=== PATIENT | female | born 1985 | race African-American/Black ===

== ENCOUNTER 2020-08-05 09:20 | Emergency (ER) | payer SELFPAY ==
[2020-08-05 09:47] LABS: #Basophils 0.1 thou/uL (0.0-0.2); #Eosinphils 0.2 thou/uL (0.0-0.7); #Lymphocytes 1.7 thou/uL (1.20-3.40); #Monocytes 0.3 thou/uL (0.11-0.59); #Neutrophils 2.3 thou/uL (1.40-6.50); %Basophils 1.3 % (0.0-1.0); %Eosinophils 4.3 % (0.0-10.0); %Lymphocytes 37.2 % (21.0-51.0); %Monocytes 7.2 % (0.0-10.0); Hemoglobin 12.2 g/dL (12.0-16.0); Mean Corpuscular HGB CONC 34.7 g/dL (32.0-36.0); Mean Corpuscular Hemoglobin 32.2 pg (27.0-31.0); Mean Corpuscular Volume 92.8 fL (78.0-98.0); Mean Platelet Volume 8.4 fL (7.4-10.4); Platelet Count 252 thou/uL (130-400); RBC Distribution Width 13.4 % (11.5-14.5); Red Blood Cell (RBC) Count 3.79 mill/uL (4.20-5.40); White Blood Cell (WBC) Count 4.5 thou/uL (4.8-10.8)
[2020-08-05 09:54] LABS: INR-International Normal Ratio 1.1; PTT 31.1 sec (22.9-36.1); Prothrombin Time 14.4 sec (12.0-14.7)
[2020-08-05 09:58] LABS: BHCG - Serum Negative (NEGATIVE); Pregs Control Background? CLEAR/WHITE (CLR/WHITE); Pregs Control Bar Appear? YES (CONTROL BAR)
[2020-08-05 10:10] LABS: ALT (SGPT) 66 U/L (8-55); AST (SGOT) 151 U/L (5-34); Albumin 3.8 g/dL (3.5-5.0); Alkaline Phosphatase 109 U/L (40-110); Anion Gap 15 mmol/L (10-20); BUN (Urea Nitrogen) 7 mg/dL (7.0-18.7); Bilirubin, Total 1.1 mg/dL (0.2-1.2); Calc. Creatinine Clearance 0 mL/min (70-130); Calcium 8.3 mg/dL (7.8-10.44); Carbon Dioxide 22 mmol/L (22-29); Chloride 105 mmol/L (98-107); Globulin 3.6 g/dL (2.4-3.5); Glucose 145 mg/dL (70-105); Lipase 42 U/L (8-78); Potassium 3.4 mmol/L (3.5-5.1); Protein, Total 7.4 g/dL (6.0-8.3); Sodium 139 mmol/L (136-145)
--- NOTE | 2020-08-05 15:16 | ULT ---
Right upper quadrant ultrasound: 08/05/2020 COMPARISON: None HISTORY: Right upper quadrant pain TECHNIQUE: Multiplanar lewis scale sonographic imaging of the right upper quadrant provided. FINDINGS: The pancreas is obscured by bowel gas. The hepatic parenchyma is heterogeneous and echogeni c suggesting hepatocellular disease, such as steatosis. This limits assessment for focal liver lesion and intrahepatic biliary dilatation. The common bile duct measures 2 mm, within normal limits. No gallbladder wall thickening or pericholecystic fluid. No gallstones. Right kidney measures 11.3 cm in craniocaudal dimension and demonstrates no stone, hydronephrosis, or mass. IMPRESSION: No sonographic evidence of cholelithiasis, cholecystitis, or biliary dilatation.
[2020-08-05] MEDS ORDERED: Morphine 4 MG/ML VIAL ONE (17:52)
[2020-08-05] MEDS ORDERED: Ondansetron PF 4 MG/2 ML Vial ONE (17:52)
== END 2020-08-05 19:40 | disposition home or self-care (01) ==
LOC: ERS 09:20
DX: N93.8 Other specified abnormal uterine and vaginal bleeding (principal); F17.210 Nicotine dependence, cigarettes, uncomplicated
CPT/HCPCS: 36415; 76705; 80053; 82274; 83690; 84703; 85025; 85610; 85730; 96374; 96375; J2270; J2405

== ENCOUNTER 2020-10-16 08:42 | Emergency (ER) | payer SELFPAY | END 2020-10-16 10:42 | disposition home or self-care (01) | LOC: ERS 08:42 | DX: J36 Peritonsillar abscess (principal); F17.210 Nicotine dependence, cigarettes, uncomplicated | CPT/HCPCS: 87430; 99283 ==

== ENCOUNTER 2020-12-28 13:59 | Inpatient (IN) | payer SELFPAY ==
[~2020-12-28 13:59] MED LIST: Iopamidol 370 76% 100 ML VIAL ONE
[2020-12-28 15:32] LABS: #Basophils 0.1 thou/uL (0.0-0.2); #Eosinphils 0.2 thou/uL (0.0-0.7); #Lymphocytes 2.9 thou/uL (1.20-3.40); #Monocytes 0.7 thou/uL (0.11-0.59); %Basophils 1.3 % (0.0-1.0); %Lymphocytes 42.5 % (21.0-51.0); %Monocytes 9.7 % (0.0-10.0); %Neutrophils 43.4 % (42.0-75.0); Hemoglobin 12.3 g/dL (12.0-16.0); Mean Corpuscular HGB CONC 34.8 g/dL (32.0-36.0); Mean Corpuscular Hemoglobin 31.3 pg (27.0-31.0); Mean Corpuscular Volume 89.9 fL (78.0-98.0); Mean Platelet Volume 7.9 fL (7.4-10.4); Platelet Count 312 thou/uL (130-400); Red Blood Cell (RBC) Count 3.93 mill/uL (4.20-5.40); White Blood Cell (WBC) Count 6.9 thou/uL (4.8-10.8)
[2020-12-28 15:59] LABS: ALT (SGPT) 13 U/L (8-55); AST (SGOT) 33 U/L (5-34); Albumin 4.2 g/dL (3.5-5.0); Alkaline Phosphatase 59 U/L (40-110); BUN (Urea Nitrogen) 8 mg/dL (7.0-18.7); Bilirubin, Total 0.2 mg/dL (0.2-1.2); Calc. Creatinine Clearance 0 mL/min (70-130); Calcium 9.1 mg/dL (7.8-10.44); Globulin 3.4 g/dL (2.4-3.5); Glucose 112 mg/dL (70-105); Protein, Total 7.6 g/dL (6.0-8.3)
[2020-12-28 16:10] LABS: Bacteria/HPF None Seen HPF (None Seen); Bilirubin Negative (Negative); Blood, Urine 3+ (Negative); Clarity Clear (Clear); Glucose, Urine (Dipstick) Normal (Negative); Ketone, Urine Negative (Negative); Leukocyte Negative Leu/uL (Negative); Nitrite Negative (Negative); Protein, Urine (Dipstick) Negative (Neg-Trace); Specific Gravity, Urine 1.019 (1.002-1.036); Squamous Epithelial 0-3 HPF (0-3); Urobilinogen Normal mg/dL (Less than 2); WBC/HPF 0-3 HPF (0-3); pH, Urine 5.5 (5.0-9.0)
[2020-12-28 16:16] LABS: Chloride 104 mmol/L (98-107); Potassium 3.8 mmol/L (3.5-5.1); Sodium 136 mmol/L (136-145)
[2020-12-28 16:39] LABS: Amphetamine Not Detected (NotDetected); Benzodiazepine Screen Not Detected (NotDetected); Cocaine Metabolite Screen Not Detected (NotDetected); Medtox Reader # READER 4; Methamphetamine Not Detected (NotDetected); Opiate Screen Not Detected (NotDetected); Phencyclidine (PCP) Not Detected (NotDetected); THC/Cannabinoid Screen Not Detected (NotDetected); Tricyclic Screen Detected (NotDetected)
[2020-12-28 16:40] LABS: Barbiturates Screen Not Detected (NotDetected); Medtox Control Line Valid? VALID (VALID); Methadone Not Detected (NotDetected); Oxycodone Screen Not Detected (NotDetected)
[2020-12-28 16:57] LABS: Magnesium 1.9 mg/dL (1.6-2.6)
[2020-12-28] MEDS ORDERED: Metoclopramide HCl 10 MG/2 ML VIAL ONE (17:10)
[2020-12-28] MEDS ORDERED: Ketorolac Tromethamine 30 MG/ML VIAL ONE (17:10)
[2020-12-28] MEDS ORDERED: diphenhydrAMINE 50 MG/ML VIAL ONE (17:10)
[2020-12-28 17:17] LABS: Thyroid Stimulating Hormone 1.4684 uIU/mL (0.35-4.94)
[2020-12-28 17:20] LABS: Carbon Dioxide 14 mmol/L (22-29)
[2020-12-28 17:21] LABS: Anion Gap 23 mmol/L (10-20)
[2020-12-28 17:21] LABS: BHCG - Serum Negative (NEGATIVE); Pregs Control Background? CLEAR/WHITE (CLR/WHITE); Pregs Control Bar Appear? YES (CONTROL BAR)
[2020-12-28 17:51] LABS: MONO NEGATIVE CONTROL ZONE White (Negative) (White); MONO POSITIVE CONTROL Pink Line (Positive) (PINK/RED); Mononucleosis NEGATIVE (NEGATIVE)
[2020-12-28 17:54] LABS: Pregu Control Background? CLEAR/WHITE (CLR/WHITE); Pregu Control Bar Appear? YES (CONTROL BAR); Specific Gravity 1.011 (1.002-1.036)
[2020-12-28 17:55] LABS: Pregnancy Test - Urine (BHCG) Negative (Negative)
[2020-12-28 18:53] LABS: SARS-CoV-2 NAA Rapid Test Not Detected (NotDetected)
[2020-12-28] MEDS ORDERED: Morphine 4 MG/ML VIAL ONE (18:56)
[2020-12-28 19:55] LABS: Lactic Acid 2.7 mmol/L (0.5-2.2)
[2020-12-28 19:56] LABS: Actual Bicarbonate (HCO3v) 19 mEq/L (22-28); Analyzer IN Cardio ER; Base Excess -3.5 mEq/L (-2.0 to +3.0); Calcium, Ionized (venous) 0.95 mmol/L (1.16-1.32); Chloride (VBG) 105 mmol/L (98-106); Potassium (VBG) 4.06 mmol/L (3.70-5.30); Sodium 132.2 mmol/L (133-146); pH (venous) 7.46 (7.32-7.43)
[2020-12-28] MEDS ORDERED: cefTRIAXone\\ROCEPHIN 1 GM VIAL ONE (20:10)
[2020-12-28] MEDS ORDERED: Vancomycin 1 GM/200 ML BAG ONE (20:54)
[2020-12-28] MEDS ORDERED: Acetaminophen 325 MG TAB PO PRN (21:43)
[2020-12-28] MEDS ORDERED: Ondansetron PF 4 MG/2 ML Vial IVP PRN (21:43)
[2020-12-28 23:01] VITALS: BMI 29.0
[2020-12-28] MEDS: Sodium Chloride 0.9% 1,000 ML IV SCH (23:24)
[2020-12-28] MEDS: HYDROcodone/Acetaminophen 7.5/325 mg Tablet PO PRN (23:25)
[2020-12-29] MEDS: Sodium Chloride 0.9% 1,000 ML IV SCH ×2 (05:52→20:35)
[2020-12-29] MEDS: HYDROcodone/Acetaminophen 7.5/325 mg Tablet PO PRN ×4 (05:56→20:34)
[2020-12-29] MEDS ORDERED: CEFEPIME HCL IN DEXTROSE 5 % 1 GM in Premix Bag 1 BAG IVPB SCH (06:00)
[2020-12-29] MEDS ORDERED: Cefepime 1 GM in Sodium Chloride 0.9% 100 ML IVPB SCH (06:00)
[2020-12-29 06:07] LABS: #Basophils 0.1 thou/uL (0.0-0.2); #Eosinphils 0.2 thou/uL (0.0-0.7); #Lymphocytes 2.4 thou/uL (1.20-3.40); #Monocytes 0.5 thou/uL (0.11-0.59); %Basophils 1.4 % (0.0-1.0); %Lymphocytes 46.8 % (21.0-51.0); %Monocytes 9.2 % (0.0-10.0); %Neutrophils 39.7 % (42.0-75.0); Hemoglobin 9.9 g/dL (12.0-16.0); Mean Corpuscular HGB CONC 34.7 g/dL (32.0-36.0); Mean Corpuscular Hemoglobin 31.3 pg (27.0-31.0); Mean Corpuscular Volume 90.4 fL (78.0-98.0); Mean Platelet Volume 7.9 fL (7.4-10.4); Platelet Count 236 thou/uL (130-400); RBC Distribution Width 14.5 % (11.5-14.5); Red Blood Cell (RBC) Count 3.17 mill/uL (4.20-5.40); White Blood Cell (WBC) Count 5.1 thou/uL (4.8-10.8)
[2020-12-29 06:22] LABS: Lactic Acid 2.3 mmol/L (0.5-2.2)
[2020-12-29 06:26] LABS: Anion Gap 14 mmol/L (10-20); BUN (Urea Nitrogen) 7 mg/dL (7.0-18.7); Calc. Creatinine Clearance 125 mL/min (70-130); Carbon Dioxide 18 mmol/L (22-29); Chloride 110 mmol/L (98-107); Glucose 108 mg/dL (70-105); Potassium 3.5 mmol/L (3.5-5.1); Sodium 138 mmol/L (136-145)
[2020-12-29] MEDS ORDERED: Vancomycin 1 GM in Premix Bag 1 BAG IVPB SCH (09:00)
[2020-12-29] MEDS ORDERED: Acetaminophen 500 MG TAB PO PRN (12:07)
[2020-12-29] MEDS ORDERED: Ibuprofen 200 MG TAB PO PRN (12:14)
[2020-12-30] MEDS: HYDROcodone/Acetaminophen 7.5/325 mg Tablet PO PRN ×2 (04:27→08:24)
[2020-12-30 06:36] LABS: #Basophils 0.1 thou/uL (0.0-0.2); #Eosinphils 0.2 thou/uL (0.0-0.7); #Lymphocytes 2.3 thou/uL (1.20-3.40); #Monocytes 0.4 thou/uL (0.11-0.59); #Neutrophils 2.5 thou/uL (1.40-6.50); %Eosinophils 3.4 % (0.0-10.0); %Lymphocytes 41.8 % (21.0-51.0); %Neutrophils 45.8 % (42.0-75.0); Mean Corpuscular HGB CONC 34.9 g/dL (32.0-36.0); Mean Corpuscular Hemoglobin 31.6 pg (27.0-31.0); Mean Corpuscular Volume 90.4 fL (78.0-98.0); Mean Platelet Volume 7.8 fL (7.4-10.4); Platelet Count 229 thou/uL (130-400); RBC Distribution Width 14.2 % (11.5-14.5); Red Blood Cell (RBC) Count 3.16 mill/uL (4.20-5.40); White Blood Cell (WBC) Count 5.5 thou/uL (4.8-10.8)
[2020-12-30 07:03] LABS: Anion Gap 13 mmol/L (10-20); BUN (Urea Nitrogen) 5 mg/dL (7.0-18.7); Calc. Creatinine Clearance 130 mL/min (70-130); Calcium 8.2 mg/dL (7.8-10.44); Carbon Dioxide 21 mmol/L (22-29); Chloride 107 mmol/L (98-107); Glucose 110 mg/dL (70-105); Potassium 3.9 mmol/L (3.5-5.1); Sodium 137 mmol/L (136-145)
[2020-12-30 08:30] VITALS: BP 126/88
[2020-12-30] MEDS ORDERED: Enoxaparin Sodium 40 MG/0.4 ML SYRINGE SC SCH (09:00)
[2020-12-30] MEDS ORDERED: Citalopram 10 MG TAB PO SCH (09:00)
[2020-12-30] MEDS: Sodium Chloride 0.9% 1,000 ML IV SCH (10:00)
[2020-12-30] MEDS ORDERED: Ketorolac Tromethamine 30 MG/ML VIAL IVP SCH (11:30)
[2020-12-30 13:31] VITALS: TEMP 98.2
== END 2020-12-30 14:30 | disposition home or self-care (01) | DRG 103 ==
LOC: ERS 13:59 → T4-A 20:49 → OBSVTOIN 12-30 10:09
PROVIDERS: ADMIT Internal Medicine; ATTEND Internal Medicine
DX: R51.9 Headache, unspecified (principal); E87.2 Acidosis; Z20.822 Contact with and (suspected) exposure to COVID-19; F31.9 Bipolar disorder, unspecified; F20.9 Schizophrenia, unspecified; F17.210 Nicotine dependence, cigarettes, uncomplicated; F43.10 Post-traumatic stress disorder, unspecified; N28.1 Cyst of kidney, acquired; E86.0 Dehydration; Z79.899 Other long term (current) drug therapy
CPT/HCPCS: 0240U; 36415; 70450; 71045; 74177; 80048; 80053; 80306; 81003; 81015; 81025; 82805; 83605; 83630; 83690; 83735; 84443; 84484; 84703; 85025; 85379; 86308; 87040; 87045; 87046; 87086; 87177; 87427; 87449; 93005; 96365; 96366; 96367; 96372; 96375; 96376; G0378; J0692; J0696; J1200; J1650; J1885; J2270; J2765; J3370; Q9967

== ENCOUNTER 2021-02-10 14:57 | Inpatient (IN) | payer SELFPAY ==
[~2021-02-10 14:57] MED LIST changes: -Iopamidol 370 76% 100 ML VIAL ONE; +Iopamidol-370 76% 500 ML 1 ML ONE
[2021-02-10] MEDS ORDERED: Haloperidol Lactate 5 MG/ML VIAL ONE (15:19)
[2021-02-10] MEDS ORDERED: Lorazepam 2 MG/ML VIAL ONE ×2 (15:33→20:46)
[2021-02-10] MEDS ORDERED: Morphine 4 MG/ML VIAL ONE (15:33)
[2021-02-10] MEDS ORDERED: Ondansetron PF 4 MG/2 ML Vial ONE (16:18)
[2021-02-10 16:38] LABS: #Basophils 0.1 thou/uL (0.0-0.2); #Eosinphils 0.1 thou/uL (0.0-0.7); #Lymphocytes 3.3 thou/uL (1.20-3.40); #Monocytes 0.4 thou/uL (0.11-0.59); #Neutrophils 6.5 thou/uL (1.40-6.50); %Basophils 0.7 % (0.0-1.0); %Eosinophils 0.9 % (0.0-10.0); %Lymphocytes 32.3 % (21.0-51.0); %Monocytes 3.7 % (0.0-10.0); %Neutrophils 62.5 % (42.0-75.0); Hemoglobin 12.3 g/dL (12.0-16.0); Mean Corpuscular HGB CONC 35.9 g/dL (32.0-36.0); Mean Corpuscular Hemoglobin 31.6 pg (27.0-31.0); Mean Corpuscular Volume 88.1 fL (78.0-98.0); Mean Platelet Volume 8.4 fL (7.4-10.4); Platelet Count 263 thou/uL (130-400); RBC Distribution Width 15.5 % (11.5-14.5); Red Blood Cell (RBC) Count 3.88 mill/uL (4.20-5.40); White Blood Cell (WBC) Count 10.3 thou/uL (4.8-10.8)
[2021-02-10 16:58] LABS: Bilirubin Negative (Negative); Blood, Urine Negative (Negative); Clarity Turbid (Clear); Glucose, Urine (Dipstick) Normal (Negative); Ketone, Urine Negative (Negative); Leukocyte Negative Leu/uL (Negative); Nitrite Negative (Negative); Protein, Urine (Dipstick) 20 mg/dL (Neg-Trace); Specific Gravity, Urine 1.013 (1.002-1.036); Urobilinogen Normal mg/dL (Less than 2); pH, Urine 5.5 (5.0-9.0)
[2021-02-10 17:12] LABS: ALT (SGPT) 27 U/L (8-55); AST (SGOT) 66 U/L (5-34); Alkaline Phosphatase 75 U/L (40-110); Anion Gap 17 mmol/L (10-20); BUN (Urea Nitrogen) Less than 4 mg/dL (7.0-18.7); Bilirubin, Total 0.8 mg/dL (0.2-1.2); Calc. Creatinine Clearance 0 mL/min (70-130); Carbon Dioxide 20 mmol/L (22-29); Chloride 103 mmol/L (98-107); Globulin 3.7 g/dL (2.4-3.5); Glucose 145 mg/dL (70-105); Lipase 828 U/L (8-78); Potassium 3.5 mmol/L (3.5-5.1); Protein, Total 7.7 g/dL (6.0-8.3); Sodium 136 mmol/L (136-145)
[2021-02-10 17:18] LABS: BHCG - Serum Negative (NEGATIVE); Pregs Control Background? CLEAR/WHITE (CLR/WHITE); Pregs Control Bar Appear? YES (CONTROL BAR)
[2021-02-10 19:04] LABS: Magnesium 1.4 mg/dL (1.6-2.6); Phosphorus 2.1 mg/dL (2.3-4.7)
[2021-02-10 19:34] LABS: Lactic Acid 3.5 mmol/L (0.5-2.2)
[2021-02-10] MEDS ORDERED: Magnesium Sulfate 4 GM in Sodium Chloride 0.9% 250 ML 250 ML IVPB SCH (20:30)
[2021-02-10] MEDS ORDERED: Lorazepam 2 MG/ML VIAL SLOW IVP PRN (20:39)
[2021-02-10] MEDS ORDERED: Haloperidol Lactate 5 MG/ML VIAL SLOW IVP PRN (20:39)
[2021-02-10] MEDS ORDERED: Ondansetron ODT 4 MG TAB SL PRN (20:45)
[2021-02-10] MEDS ORDERED: Sodium Chloride 0.9% 1,000 ML IV SCH (20:45)
[2021-02-10] MEDS ORDERED: Ondansetron PF 4 MG/2 ML Vial IVP PRN (20:45)
[2021-02-10] MEDS ORDERED: Acetaminophen 325 MG TAB PO PRN (20:45)
[2021-02-10] MEDS ORDERED: Morphine 2 MG/ML VIAL ONE (20:46)
[2021-02-10] MEDS ORDERED: Ziprasidone 20 MG VIAL IM SCH (22:05)
[2021-02-10] MEDS ORDERED: Morphine 4 MG/ML VIAL IV SCH (22:05)
[2021-02-10] MEDS: Sodium Chloride 0.9% 1,000 ML IV SCH (22:10)
[2021-02-10] MEDS ORDERED: Sterile Water 10 ML VIAL FS PRN ×2 (22:15→22:30)
[2021-02-10 22:19] VITALS: BMI 32.3
[2021-02-10] MEDS ORDERED: Morphine 4 MG/ML VIAL SLOW IVP SCH (22:30)
[2021-02-10] MEDS ORDERED: OLANZapine 10 MG VIAL IM SCH (22:30)
[2021-02-11] MEDS: Morphine 4 MG/ML VIAL SLOW IVP PRN ×2 (01:03→03:59)
[2021-02-11] MEDS: Sodium Chloride 0.9% 1,000 ML IV SCH ×6 (01:05→19:58)
[2021-02-11] MEDS ORDERED: Ondansetron ODT 4 MG TAB PO PRN (02:17)
[2021-02-11 07:42] LABS: #Lymphocytes 1.4 thou/uL (1.20-3.40); #Monocytes 0.4 thou/uL (0.11-0.59); #Neutrophils 9.8 thou/uL (1.40-6.50); %Basophils 0.3 % (0.0-1.0); %Eosinophils 0.2 % (0.0-10.0); %Lymphocytes 11.8 % (21.0-51.0); %Monocytes 3.2 % (0.0-10.0); %Neutrophils 84.5 % (42.0-75.0); Hemoglobin 12.5 g/dL (12.0-16.0); Mean Corpuscular Hemoglobin 31.4 pg (27.0-31.0); Mean Corpuscular Volume 89.6 fL (78.0-98.0); Mean Platelet Volume 7.9 fL (7.4-10.4); Platelet Count 195 thou/uL (130-400); RBC Distribution Width 15.8 % (11.5-14.5); Red Blood Cell (RBC) Count 3.99 mill/uL (4.20-5.40); White Blood Cell (WBC) Count 11.6 thou/uL (4.8-10.8)
[2021-02-11 08:01] LABS: Anion Gap 15 mmol/L (10-20); BUN (Urea Nitrogen) Less than 4 mg/dL (7.0-18.7); Calc. Creatinine Clearance 149 mL/min (70-130); Calcium 6.9 mg/dL (7.8-10.44); Carbon Dioxide 17 mmol/L (22-29); Cardiac Risk 3.6 (Less than 4.5); Chloride 98 mmol/L (98-107); Cholesterol 177 mg/dl (< 200 Desired); Glucose 189 mg/dL (70-105); HDL Cholesterol 49 mg/dL (>60 Neg Risk); LDL Cholesterol, Calculated 100 mg/dL; Lipase 953 U/L (8-78); Magnesium 1.8 mg/dL (1.6-2.6); Potassium 4.3 mmol/L (3.5-5.1); Sodium 126 mmol/L (136-145); Triglycerides 141 mg/dL (Less than 150)
[2021-02-11 08:04] LABS: Lactic Acid 6.3 mmol/L (0.5-2.2)
[2021-02-11] MEDS ORDERED: Piperacillin/Tazobactam 3.375 GM in Sodium Chloride 0.9% 100 ML IVPB SCH ×2 (08:15→09:00)
[2021-02-11 08:27] LABS: Acetaminophen Less than 6.0 mcg/mL (10.0-30.0); Alcohol Less than 10 mg/dL (Less than 10); Salicylate Less than 8.0 mg/dL (15.0-30.0)
[2021-02-11] MEDS: Morphine 2 MG/ML VIAL SLOW IVP PRN ×4 (08:32→19:59)
[2021-02-11] MEDS: Famotidine 20 MG TAB PO SCH ×2 (08:34→19:57)
[2021-02-11] MEDS: Escitalopram Oxalate 10 mg Tablet PO SCH (08:34)
[2021-02-11] MEDS ORDERED: Famotidine/PF 20 mg/2ml Vial SLOW IVP SCH (09:00)
[2021-02-11 11:21] LABS: Amphetamine Not Detected (NotDetected); Barbiturates Screen Not Detected (NotDetected); Benzodiazepine Screen Detected (NotDetected); Cocaine Metabolite Screen Not Detected (NotDetected); Methadone Not Detected (NotDetected); Methamphetamine Not Detected (NotDetected); Opiate Screen Detected (NotDetected); Oxycodone Screen Not Detected (NotDetected); Phencyclidine (PCP) Not Detected (NotDetected); THC/Cannabinoid Screen Not Detected (NotDetected); Tricyclic Screen Detected (NotDetected)
[2021-02-11] MEDS: Acetaminophen 325 MG TAB PO PRN ×2 (13:15→21:37)
[2021-02-11] MEDS: Ondansetron PF 4 MG/2 ML Vial IVP PRN (13:15)
[2021-02-11 14:57] LABS: SARS-CoV-2 PCR by NAA Not Detected (NotDetected)
[2021-02-11] MEDS: Piperacillin/Tazobactam 3.375 GM in Sodium Chloride 0.9% 100 ML IVPB SCH (16:37)
[2021-02-11] MEDS: Labetalol 100 MG TAB PO SCH (19:57)
[2021-02-12] MEDS: Piperacillin/Tazobactam 3.375 GM in Sodium Chloride 0.9% 100 ML IVPB SCH ×3 (00:01→16:32)
[2021-02-12] MEDS: Sodium Chloride 0.9% 1,000 ML IV SCH ×3 (00:01→16:43)
[2021-02-12] MEDS: Morphine 2 MG/ML VIAL SLOW IVP PRN ×4 (00:02→20:32)
[2021-02-12] MEDS: Acetaminophen 325 MG TAB PO PRN (02:37)
[2021-02-12] MEDS ORDERED: Ketorolac Tromethamine 30 MG/ML VIAL IVP SCH (03:30)
[2021-02-12 07:03] LABS: #Eosinphils 0.1 thou/uL (0.0-0.7); #Lymphocytes 1.3 thou/uL (1.20-3.40); #Monocytes 0.9 thou/uL (0.11-0.59); %Basophils 0.2 % (0.0-1.0); %Eosinophils 0.4 % (0.0-10.0); %Lymphocytes 9.2 % (21.0-51.0); %Monocytes 6.1 % (0.0-10.0); %Neutrophils 84.1 % (42.0-75.0); Hemoglobin 11.4 g/dL (12.0-16.0); Mean Corpuscular HGB CONC 34.4 g/dL (32.0-36.0); Mean Corpuscular Volume 90.1 fL (78.0-98.0); Mean Platelet Volume 8.6 fL (7.4-10.4); Platelet Count 197 thou/uL (130-400); RBC Distribution Width 15.7 % (11.5-14.5); Red Blood Cell (RBC) Count 3.69 mill/uL (4.20-5.40); White Blood Cell (WBC) Count 14.3 thou/uL (4.8-10.8)
[2021-02-12 07:17] LABS: ALT (SGPT) 11 U/L (8-55); AST (SGOT) 24 U/L (5-34); Albumin 2.9 g/dL (3.5-5.0); Alkaline Phosphatase 57 U/L (40-110); Anion Gap 15 mmol/L (10-20); BUN (Urea Nitrogen) Less than 4 mg/dL (7.0-18.7); Bilirubin, Total 0.6 mg/dL (0.2-1.2); Calc. Creatinine Clearance 147 mL/min (70-130); Calcium 7.1 mg/dL (7.8-10.44); Carbon Dioxide 18 mmol/L (22-29); Chloride 101 mmol/L (98-107); Globulin 2.9 g/dL (2.4-3.5); Glucose 161 mg/dL (70-105); Potassium 3.8 mmol/L (3.5-5.1); Protein, Total 5.8 g/dL (6.0-8.3); Sodium 130 mmol/L (136-145)
[2021-02-12] MEDS: Escitalopram Oxalate 10 mg Tablet PO SCH (08:48)
[2021-02-12] MEDS: Labetalol 100 MG TAB PO SCH ×2 (08:48→20:31)
[2021-02-12] MEDS: Ketorolac Tromethamine 30 MG/ML VIAL IVP PRN ×2 (16:32→22:43)
[2021-02-12] MEDS: risperiDONE 1 MG TAB PO SCH (20:32)
[2021-02-13] MEDS: Morphine 2 MG/ML VIAL SLOW IVP PRN ×4 (00:37→18:00)
[2021-02-13] MEDS: Sodium Chloride 0.9% 1,000 ML IV SCH ×4 (00:41→21:05)
[2021-02-13] MEDS: Piperacillin/Tazobactam 3.375 GM in Sodium Chloride 0.9% 100 ML IVPB SCH ×3 (00:46→16:54)
[2021-02-13] MEDS: Ketorolac Tromethamine 30 MG/ML VIAL IVP PRN ×4 (03:59→21:06)
[2021-02-13] MEDS: Escitalopram Oxalate 10 mg Tablet PO SCH (09:03)
[2021-02-13] MEDS: Labetalol 100 MG TAB PO SCH ×2 (09:07→21:04)
[2021-02-13 09:19] LABS: #Eosinphils 0.1 thou/uL (0.0-0.7); #Lymphocytes 1.8 thou/uL (1.20-3.40); #Monocytes 1.3 thou/uL (0.11-0.59); #Neutrophils 9.1 thou/uL (1.40-6.50); %Basophils 0.2 % (0.0-1.0); %Eosinophils 0.8 % (0.0-10.0); %Lymphocytes 14.5 % (21.0-51.0); %Monocytes 10.4 % (0.0-10.0); %Neutrophils 74.1 % (42.0-75.0); Hemoglobin 9.8 g/dL (12.0-16.0); Mean Corpuscular HGB CONC 33.7 g/dL (32.0-36.0); Mean Corpuscular Hemoglobin 30.2 pg (27.0-31.0); Mean Corpuscular Volume 89.7 fL (78.0-98.0); Mean Platelet Volume 7.8 fL (7.4-10.4); Platelet Count 189 thou/uL (130-400); RBC Distribution Width 16.1 % (11.5-14.5); Red Blood Cell (RBC) Count 3.24 mill/uL (4.20-5.40); White Blood Cell (WBC) Count 12.2 thou/uL (4.8-10.8)
[2021-02-13 09:39] LABS: Anion Gap 10 mmol/L (10-20); BUN (Urea Nitrogen) 4 mg/dL (7.0-18.7); Calc. Creatinine Clearance 153 mL/min (70-130); Calcium 7.5 mg/dL (7.8-10.44); Carbon Dioxide 25 mmol/L (22-29); Chloride 106 mmol/L (98-107); Glucose 120 mg/dL (70-105); Lipase 218 U/L (8-78); Potassium 3.4 mmol/L (3.5-5.1); Sodium 138 mmol/L (136-145)
[2021-02-13] MEDS: Potassium Chloride 20 MEQ TAB PO SCH ×2 (15:05→21:03)
[2021-02-13 17:22] LABS: Bilirubin Negative (Negative); Blood, Urine Negative (Negative); Clarity Clear (Clear); Glucose, Urine (Dipstick) Normal (Negative); Ketone, Urine Negative (Negative); Leukocyte Negative Leu/uL (Negative); Nitrite Negative (Negative); Protein, Urine (Dipstick) 10 mg/dL (Neg-Trace); Specific Gravity, Urine 1.015 (1.002-1.036); Urobilinogen Normal mg/dL (Less than 2)
[2021-02-13] MEDS: risperiDONE 1 MG TAB PO SCH (21:04)
[2021-02-14] MEDS: Morphine 2 MG/ML VIAL SLOW IVP PRN ×4 (00:02→20:39)
[2021-02-14] MEDS: Piperacillin/Tazobactam 3.375 GM in Sodium Chloride 0.9% 100 ML IVPB SCH ×3 (00:05→16:46)
[2021-02-14] MEDS: Potassium Chloride 20 MEQ TAB PO SCH (02:21)
[2021-02-14] MEDS: Ketorolac Tromethamine 30 MG/ML VIAL IVP PRN ×4 (02:58→23:42)
[2021-02-14] MEDS: Sodium Chloride 0.9% 1,000 ML IV SCH ×3 (03:04→19:21)
[2021-02-14] MEDS: Labetalol 100 MG TAB PO SCH ×2 (07:54→20:38)
[2021-02-14] MEDS: Escitalopram Oxalate 10 mg Tablet PO SCH (07:54)
[2021-02-14] MEDS: risperiDONE 1 MG TAB PO SCH (20:38)
[2021-02-15] MEDS: Sodium Chloride 0.9% 1,000 ML IV SCH ×4 (00:59→16:23)
[2021-02-15] MEDS: Piperacillin/Tazobactam 3.375 GM in Sodium Chloride 0.9% 100 ML IVPB SCH ×3 (01:00→18:09)
[2021-02-15] MEDS: Morphine 2 MG/ML VIAL SLOW IVP PRN ×5 (02:10→22:47)
[2021-02-15] MEDS: Ketorolac Tromethamine 30 MG/ML VIAL IVP PRN ×3 (04:54→18:09)
[2021-02-15] MEDS: Escitalopram Oxalate 10 mg Tablet PO SCH (08:17)
[2021-02-15] MEDS: Labetalol 100 MG TAB PO SCH ×2 (08:17→21:01)
[2021-02-15 11:24] LABS: #Eosinphils 0.2 thou/uL (0.0-0.7); #Lymphocytes 1.8 thou/uL (1.20-3.40); #Monocytes 1.4 thou/uL (0.11-0.59); #Neutrophils 7.3 thou/uL (1.40-6.50); %Basophils 0.5 % (0.0-1.0); %Eosinophils 1.9 % (0.0-10.0); %Lymphocytes 16.7 % (21.0-51.0); %Monocytes 13.2 % (0.0-10.0); %Neutrophils 67.8 % (42.0-75.0); Hemoglobin 9.4 g/dL (12.0-16.0); Mean Corpuscular HGB CONC 34.4 g/dL (32.0-36.0); Mean Platelet Volume 7.7 fL (7.4-10.4); Platelet Count 276 thou/uL (130-400); RBC Distribution Width 16.8 % (11.5-14.5); Red Blood Cell (RBC) Count 3.04 mill/uL (4.20-5.40); White Blood Cell (WBC) Count 10.7 thou/uL (4.8-10.8)
[2021-02-15 11:40] LABS: ALT (SGPT) 9 U/L (8-55); AST (SGOT) 23 U/L (5-34); Alkaline Phosphatase 89 U/L (40-110); Anion Gap 11 mmol/L (10-20); BUN (Urea Nitrogen) Less than 4 mg/dL (7.0-18.7); Bilirubin, Total 0.5 mg/dL (0.2-1.2); Calc. Creatinine Clearance 155 mL/min (70-130); Calcium 8.4 mg/dL (7.8-10.44); Carbon Dioxide 23 mmol/L (22-29); Chloride 105 mmol/L (98-107); Globulin 3.3 g/dL (2.4-3.5); Glucose 116 mg/dL (70-105); Potassium 3.6 mmol/L (3.5-5.1); Protein, Total 6.3 g/dL (6.0-8.3); Sodium 135 mmol/L (136-145)
[2021-02-15] MEDS: risperiDONE 1 MG TAB PO SCH (21:02)
[2021-02-15] MEDS: Pantoprazole 40 MG VIAL IVP SCH (21:03)
[2021-02-16] MEDS: Ketorolac Tromethamine 30 MG/ML VIAL IVP PRN ×3 (00:21→14:36)
[2021-02-16] MEDS: Piperacillin/Tazobactam 3.375 GM in Sodium Chloride 0.9% 100 ML IVPB SCH ×3 (01:48→18:16)
[2021-02-16] MEDS: Sodium Chloride 0.9% 1,000 ML IV SCH ×3 (01:49→13:05)
[2021-02-16] MEDS: Morphine 2 MG/ML VIAL SLOW IVP PRN ×4 (04:00→22:29)
[2021-02-16 06:54] LABS: ALT (SGPT) 10 U/L (8-55); AST (SGOT) 21 U/L (5-34); Albumin 2.9 g/dL (3.5-5.0); Alkaline Phosphatase 82 U/L (40-110); Anion Gap 11 mmol/L (10-20); BUN (Urea Nitrogen) Less than 4 mg/dL (7.0-18.7); Bilirubin, Total 0.4 mg/dL (0.2-1.2); Calc. Creatinine Clearance 157 mL/min (70-130); Calcium 8.4 mg/dL (7.8-10.44); Carbon Dioxide 22 mmol/L (22-29); Chloride 105 mmol/L (98-107); Globulin 3.1 g/dL (2.4-3.5); Glucose 142 mg/dL (70-105); Potassium 3.4 mmol/L (3.5-5.1); Sodium 135 mmol/L (136-145)
[2021-02-16 07:03] LABS: Hemoglobin 8.4 g/dL (12.0-16.0); Mean Corpuscular HGB CONC 31.9 g/dL (32.0-36.0); Mean Corpuscular Hemoglobin 28.3 pg (27.0-31.0); Mean Corpuscular Volume 88.6 fL (78.0-98.0); Mean Platelet Volume 7.7 fL (7.4-10.4); Platelet Count 319 thou/uL (130-400); RBC Distribution Width 17.1 % (11.5-14.5); Red Blood Cell (RBC) Count 2.99 mill/uL (4.20-5.40); White Blood Cell (WBC) Count 9.4 thou/uL (4.8-10.8)
[2021-02-16 08:00] LABS: Band 5 % (5-11); Eosinophils 1 % (0-10); Lymphocytes 24 % (21-51); MDiff Complete? YES; Monocytes 11 % (0-10); Neutrophil 58 % (42-75); Nucleated RBC 2 % (0)
[2021-02-16] MEDS: Escitalopram Oxalate 10 mg Tablet PO SCH (08:07)
[2021-02-16] MEDS: Labetalol 100 MG TAB PO SCH ×2 (08:07→20:54)
[2021-02-16] MEDS: Pantoprazole 40 MG VIAL IVP SCH ×2 (08:08→20:56)
[2021-02-16] MEDS ORDERED: Dicyclomine 20 MG TAB PO PRN (12:10)
[2021-02-16] MEDS: traMADol HCl 50 MG TAB PO PRN ×2 (13:06→19:20)
[2021-02-16] MEDS: risperiDONE 1 MG TAB PO SCH (20:54)
[2021-02-17] MEDS: HYDROcodone/Acetaminophen 5/325 mg Tablet PO PRN ×5 (00:16→21:30)
[2021-02-17] MEDS: Sodium Chloride 0.9% 1,000 ML IV SCH ×2 (00:17→08:30)
[2021-02-17] MEDS: Piperacillin/Tazobactam 3.375 GM in Sodium Chloride 0.9% 100 ML IVPB SCH ×3 (00:17→16:33)
[2021-02-17] MEDS: Morphine 2 MG/ML VIAL SLOW IVP PRN ×4 (05:44→20:18)
[2021-02-17 06:45] LABS: Hemoglobin 8.6 g/dL (12.0-16.0); Mean Corpuscular HGB CONC 33.4 g/dL (32.0-36.0); Mean Corpuscular Hemoglobin 29.9 pg (27.0-31.0); Mean Corpuscular Volume 89.5 fL (78.0-98.0); Mean Platelet Volume 7.9 fL (7.4-10.4); Platelet Count 348 thou/uL (130-400); RBC Distribution Width 17.3 % (11.5-14.5); Red Blood Cell (RBC) Count 2.87 mill/uL (4.20-5.40); White Blood Cell (WBC) Count 9.8 thou/uL (4.8-10.8)
[2021-02-17 06:59] LABS: ALT (SGPT) 9 U/L (8-55); AST (SGOT) 19 U/L (5-34); Alkaline Phosphatase 82 U/L (40-110); Anion Gap 11 mmol/L (10-20); BUN (Urea Nitrogen) Less than 4 mg/dL (7.0-18.7); Bilirubin, Total 0.4 mg/dL (0.2-1.2); Calc. Creatinine Clearance 159 mL/min (70-130); Calcium 8.6 mg/dL (7.8-10.44); Carbon Dioxide 25 mmol/L (22-29); Chloride 103 mmol/L (98-107); Globulin 3.3 g/dL (2.4-3.5); Glucose 139 mg/dL (70-105); Potassium 3.2 mmol/L (3.5-5.1); Protein, Total 6.3 g/dL (6.0-8.3); Sodium 136 mmol/L (136-145)
[2021-02-17 08:19] LABS: Band 12 % (5-11); Eosinophils 2 % (0-10); Lymphocytes 19 % (21-51); MDiff Complete? YES; Metamyelocyte 1 % (0-0); Monocytes 18 % (0-10); Neutrophil 48 % (42-75); Platelet Morphology Comment Appears Adequate; Polychromasia SLIGHT = 2-3 cells (100X) (0-2/hpf)
[2021-02-17] MEDS: Escitalopram Oxalate 10 mg Tablet PO SCH (09:40)
[2021-02-17] MEDS ORDERED: Iopamidol-370 76% 500 ML 1 ML ONE (09:40)
[2021-02-17] MEDS: Pantoprazole 40 MG VIAL IVP SCH ×2 (09:41→20:19)
[2021-02-17] MEDS: Labetalol 100 MG TAB PO SCH ×2 (09:54→20:19)
[2021-02-17] MEDS ORDERED: Hydrocerin (Eucerin) Cream 120 gm Jar TOP PRN (10:45)
[2021-02-17] MEDS ORDERED: Calcium Carbonate 500 MG ChewTAB PO PRN (10:45)
[2021-02-17] MEDS ORDERED: Bisacodyl 5 MG TAB PO PRN (10:45)
[2021-02-17] MEDS ORDERED: Cepastat Lozenges 1 LOZ PO PRN (10:45)
[2021-02-17] MEDS ORDERED: GUAIFENESIN SF SOLN 200 MG/10 ML UDCUP PO PRN (10:45)
[2021-02-17] MEDS ORDERED: Benzonatate 100 MG CAP PO PRN (10:45)
[2021-02-17] MEDS ORDERED: Artificial Tear Sol 15 ML BOT EA EYE PRN (10:45)
[2021-02-17] MEDS ORDERED: Loratadine 10 MG TAB PO PRN (10:45)
[2021-02-17] MEDS ORDERED: hydrALAZINE 20 MG/ML VIAL SLOW IVP PRN (10:45)
[2021-02-17] MEDS ORDERED: Sodium Chloride 0.65% Nasal 44 ML BOT EA NARE PRN (10:45)
[2021-02-17] MEDS ORDERED: Loperamide HCl 2 MG CAP PO PRN (10:45)
[2021-02-17] MEDS ORDERED: Senokot S 8.6-50 MG TAB PO PRN (10:45)
[2021-02-17 11:26] LABS: Lipase 19 U/L (8-78); Magnesium 1.7 mg/dL (1.6-2.6); Phosphorus 3.8 mg/dL (2.3-4.7)
[2021-02-17 11:40] LABS: Hemoglobin A1c 4.8 % (4.0-6.0)
[2021-02-17 13:35] LABS: Lactic Acid 0.7 mmol/L (0.5-2.2)
[2021-02-17] MEDS: risperiDONE 1 MG TAB PO SCH (20:19)
[2021-02-18] MEDS: Piperacillin/Tazobactam 3.375 GM in Sodium Chloride 0.9% 100 ML IVPB SCH (01:22)
[2021-02-18] MEDS: Morphine 2 MG/ML VIAL SLOW IVP PRN ×2 (01:22→09:06)
[2021-02-18] MEDS: HYDROcodone/Acetaminophen 5/325 mg Tablet PO PRN ×3 (03:13→14:39)
[2021-02-18] MEDS: Escitalopram Oxalate 10 mg Tablet PO SCH (09:05)
[2021-02-18] MEDS: Labetalol 100 MG TAB PO SCH ×2 (09:05→17:22)
[2021-02-18] MEDS: Pantoprazole 40 MG VIAL IVP SCH (09:05)
[2021-02-18 10:31] LABS: #Basophils 0.1 thou/uL (0.0-0.2); #Eosinphils 0.2 thou/uL (0.0-0.7); #Lymphocytes 1.7 thou/uL (1.20-3.40); #Monocytes 1.2 thou/uL (0.11-0.59); #Neutrophils 7.3 thou/uL (1.40-6.50); %Basophils 0.6 % (0.0-1.0); %Eosinophils 1.9 % (0.0-10.0); %Monocytes 11.9 % (0.0-10.0); %Neutrophils 69.7 % (42.0-75.0); Hemoglobin 8.9 g/dL (12.0-16.0); Mean Corpuscular HGB CONC 34.7 g/dL (32.0-36.0); Mean Corpuscular Hemoglobin 30.6 pg (27.0-31.0); Mean Corpuscular Volume 88.2 fL (78.0-98.0); Mean Platelet Volume 8.1 fL (7.4-10.4); Platelet Count 329 thou/uL (130-400); RBC Distribution Width 17.5 % (11.5-14.5); White Blood Cell (WBC) Count 10.5 thou/uL (4.8-10.8)
[2021-02-18] MEDS: Ondansetron PF 4 MG/2 ML Vial IVP PRN (10:47)
[2021-02-18 10:57] LABS: CRP (Inflammatory) 10.89 mg/dL (= or < 0.5); Phosphorus 3.5 mg/dL (2.3-4.7)
[2021-02-18 10:59] LABS: ALT (SGPT) 8 U/L (8-55); AST (SGOT) 16 U/L (5-34); Albumin 2.9 g/dL (3.5-5.0); Alkaline Phosphatase 76 U/L (40-110); Anion Gap 13 mmol/L (10-20); BUN (Urea Nitrogen) Less than 4 mg/dL (7.0-18.7); Bilirubin, Total 0.3 mg/dL (0.2-1.2); Calc. Creatinine Clearance 149 mL/min (70-130); Calcium 8.6 mg/dL (7.8-10.44); Carbon Dioxide 25 mmol/L (22-29); Chloride 100 mmol/L (98-107); Globulin 3.6 g/dL (2.4-3.5); Glucose 202 mg/dL (70-105); Magnesium 1.7 mg/dL (1.6-2.6); Potassium 3.3 mmol/L (3.5-5.1); Protein, Total 6.5 g/dL (6.0-8.3); Sodium 135 mmol/L (136-145)
[2021-02-18 17:22] VITALS: BP 155/104; TEMP 97.9
== END 2021-02-18 18:11 | disposition home or self-care (01) | DRG 439 ==
LOC: ERS 14:57 → T4-B 18:36
PROVIDERS: ADMIT Internal Medicine; ATTEND Internal Medicine
DX: K85.21 Alcohol induced acute pancreatitis with uninfected necrosis (principal); E87.2 Acidosis; K56.7 Ileus, unspecified; Z20.822 Contact with and (suspected) exposure to COVID-19; F20.9 Schizophrenia, unspecified; F31.9 Bipolar disorder, unspecified; F43.10 Post-traumatic stress disorder, unspecified; E66.9 Obesity, unspecified; I10 Essential (primary) hypertension; F17.210 Nicotine dependence, cigarettes, uncomplicated; Z68.32 Body mass index [BMI] 32.0-32.9, adult; Z79.899 Other long term (current) drug therapy
CPT/HCPCS: 36415; 71045; 74022; 74160; 74177; 80048; 80053; 80061; 80306; 80307; 81003; 82010; 83036; 83605; 83690; 83735; 83880; 84100; 84484; 84703; 85025; 86140; 87086; 93005; 96374; 96375; C9113; J1630; J1885; J2060; J2270; J2358; J2405; J2543; J3475; J3490; J7050; Q0162; Q9967; U0003; U0005

== ENCOUNTER 2021-04-09 01:02 | Inpatient (IN) | payer MEDICAID, SELFPAY ==
[2021-04-09 01:44] LABS: #Basophils 0.1 thou/uL (0.0-0.2); #Eosinphils 0.3 thou/uL (0.0-0.7); #Lymphocytes 3.1 thou/uL (1.20-3.40); #Monocytes 0.7 thou/uL (0.11-0.59); #Neutrophils 4.1 thou/uL (1.40-6.50); %Basophils 1.2 % (0.0-1.0); %Lymphocytes 37.1 % (21.0-51.0); %Monocytes 8.5 % (0.0-10.0); %Neutrophils 49.2 % (42.0-75.0); Hemoglobin 12.6 g/dL (12.0-16.0); Mean Corpuscular HGB CONC 34.8 g/dL (32.0-36.0); Mean Corpuscular Hemoglobin 29.5 pg (27.0-31.0); Mean Corpuscular Volume 84.7 fL (78.0-98.0); Mean Platelet Volume 9.3 fL (7.4-10.4); Platelet Count 429 thou/uL (130-400); Red Blood Cell (RBC) Count 4.29 mill/uL (4.20-5.40); White Blood Cell (WBC) Count 8.3 thou/uL (4.8-10.8)
[2021-04-09 01:48] LABS: Bilirubin Negative (Negative); Blood, Urine Negative (Negative); Clarity Clear (Clear); Glucose, Urine (Dipstick) Greater than 1000 mg/dL (Negative); Ketone, Urine Negative (Negative); Leukocyte Negative Leu/uL (Negative); Nitrite Negative (Negative); Protein, Urine (Dipstick) Negative (Neg-Trace); Specific Gravity, Urine 1.019 (1.002-1.036); Urobilinogen Normal mg/dL (Less than 2); pH, Urine 5.5 (5.0-9.0)
[2021-04-09 01:55] LABS: BHCG - Serum Negative (NEGATIVE); Pregs Control Background? CLEAR/WHITE (CLR/WHITE); Pregs Control Bar Appear? YES (CONTROL BAR)
[2021-04-09 02:01] LABS: ALT (SGPT) 49 U/L (8-55); AST (SGOT) 126 U/L (5-34); Albumin 4.5 g/dL (3.5-5.0); Alkaline Phosphatase 125 U/L (40-110); Anion Gap 18 mmol/L (10-20); BUN (Urea Nitrogen) 7 mg/dL (7.0-18.7); Bilirubin, Total 0.4 mg/dL (0.2-1.2); Calc. Creatinine Clearance 0 mL/min (70-130); Carbon Dioxide 17 mmol/L (22-29); Chloride 97 mmol/L (98-107); Globulin 4.1 g/dL (2.4-3.5); Glucose 466 mg/dL (70-105); Lipase 49 U/L (8-78); Potassium 4.3 mmol/L (3.5-5.1); Protein, Total 8.6 g/dL (6.0-8.3); Sodium 128 mmol/L (136-145)
[2021-04-09] MEDS ORDERED: Ondansetron PF 4 MG/2 ML Vial ONE ×2 (02:32→07:26)
[2021-04-09] MEDS ORDERED: Lidocaine Viscous Sol 2% 15 ml UD Cup ONE (02:44)
[2021-04-09] MEDS ORDERED: Mag-Al 1200 mg/1200 mg/30 ML UDCUP ONE (02:44)
[2021-04-09] MEDS ORDERED: Acetaminophen/Codeine 30-300mg Tablet ONE (02:56)
[2021-04-09] MEDS ORDERED: HYDROcodone/Acetaminophen 10/325 mg Tablet ONE (02:58)
[2021-04-09] MEDS ORDERED: Morphine 4 MG/ML VIAL ONE ×2 (04:44→07:26)
[2021-04-09] MEDS ORDERED: Ondansetron PF 4 MG/2 ML Vial IVP PRN (06:21)
[2021-04-09] MEDS ORDERED: Dextrose 5% in Water 1,000 ML IV PRN (06:23)
[2021-04-09] MEDS ORDERED: Dextrose 50% Abboject 50 ML SYRINGE SLOW IVP PRN (06:23)
[2021-04-09] MEDS ORDERED: HumaLOG 300 UNITS/3 ML VIAL SC PRN ×2 (06:23)
[2021-04-09] MEDS ORDERED: Sodium Chloride 0.9% 1,000 ML IV SCH (06:30)
[2021-04-09] MEDS: Morphine 4 MG/ML VIAL SLOW IVP PRN ×4 (07:45→20:10)
[2021-04-09] MEDS ORDERED: Pantoprazole 40 MG VIAL IVP SCH (09:00)
[2021-04-09 09:10] LABS: Anion Gap 13 mmol/L (10-20); BUN (Urea Nitrogen) 5 mg/dL (7.0-18.7); Calc. Creatinine Clearance 0 mL/min (70-130); Carbon Dioxide 21 mmol/L (22-29); Chloride 104 mmol/L (98-107); Glucose 258 mg/dL (70-105); Lipase 153 U/L (8-78); Magnesium 1.5 mg/dL (1.6-2.6); Phosphorus 2.6 mg/dL (2.3-4.7); Potassium 4.1 mmol/L (3.5-5.1); Sodium 134 mmol/L (136-145)
[2021-04-09] MEDS ORDERED: Pantoprazole 40 MG VIAL ONE (09:15)
[2021-04-09 09:34] LABS: SARS-CoV-2 NAA Rapid Test Not Detected (NotDetected)
[2021-04-09] MEDS: Pantoprazole 40 MG VIAL IVP SCH ×2 (09:36→20:10)
[2021-04-09] MEDS ORDERED: Labetalol HCl 100 MG/20 ML VIAL SLOW IVP PRN (09:54)
[2021-04-09] MEDS: Acetaminophen 325 MG TAB PO PRN ×2 (10:36→20:09)
[2021-04-09 10:39] VITALS: BMI 32.8
[2021-04-09] MEDS ORDERED: Iopamidol-370 76% 500 ML 1 ML ONE (10:59)
[2021-04-09] MEDS ORDERED: Magnesium Sulfate 4 GM in Sodium Chloride 0.9% 250 ML 250 ML IVPB SCH (11:15)
[2021-04-09] MEDS ORDERED: Electrolyte Replacement Protocol 1 EACH FS PRN (11:15)
[2021-04-09] MEDS: HumaLOG 300 UNITS/3 ML VIAL SC PRN (11:46)
[2021-04-09] MEDS: Multivit, Therapeutic 1 TAB PO SCH (11:50)
[2021-04-09] MEDS: Thiamine 100 MG TAB PO SCH (11:52)
[2021-04-09] MEDS: Folic Acid 1 MG TAB PO SCH (11:52)
[2021-04-09] MEDS: Sodium Chloride 0.9% 1,000 ML IV SCH ×3 (15:49→20:45)
[2021-04-09] MEDS: Cyanocobalamin (Vitamin B-12) 1,000 MCG TAB PO SCH (20:08)
[2021-04-09] MEDS: pyridOXINE 50 MG (B6) TAB PO SCH (20:10)
[2021-04-10] MEDS: Acetaminophen 325 MG TAB PO PRN ×3 (00:13→23:43)
[2021-04-10] MEDS: Morphine 4 MG/ML VIAL SLOW IVP PRN ×6 (00:13→20:38)
[2021-04-10] MEDS: Sodium Chloride 0.9% 1,000 ML IV SCH ×4 (04:21→23:46)
[2021-04-10 06:24] LABS: #Eosinphils 0.3 thou/uL (0.0-0.7); #Lymphocytes 1.9 thou/uL (1.20-3.40); #Monocytes 0.4 thou/uL (0.11-0.59); #Neutrophils 2.8 thou/uL (1.40-6.50); %Basophils 0.6 % (0.0-1.0); %Eosinophils 5.1 % (0.0-10.0); %Lymphocytes 35.6 % (21.0-51.0); %Monocytes 6.6 % (0.0-10.0); %Neutrophils 52.1 % (42.0-75.0); Hemoglobin 9.9 g/dL (12.0-16.0); Mean Corpuscular HGB CONC 34.2 g/dL (32.0-36.0); Mean Corpuscular Hemoglobin 29.2 pg (27.0-31.0); Mean Corpuscular Volume 85.4 fL (78.0-98.0); Mean Platelet Volume 9.9 fL (7.4-10.4); Platelet Count 255 thou/uL (130-400); RBC Distribution Width 18.1 % (11.5-14.5); Red Blood Cell (RBC) Count 3.38 mill/uL (4.20-5.40); White Blood Cell (WBC) Count 5.3 thou/uL (4.8-10.8)
[2021-04-10 06:31] LABS: Hemoglobin A1c 6.1 % (4.0-6.0)
[2021-04-10 06:46] LABS: Phosphorus 2.1 mg/dL (2.3-4.7)
[2021-04-10 06:54] LABS: ALT (SGPT) 30 U/L (8-55); AST (SGOT) 80 U/L (5-34); Albumin 3.4 g/dL (3.5-5.0); Alkaline Phosphatase 72 U/L (40-110); Anion Gap 13 mmol/L (10-20); BUN (Urea Nitrogen) Less than 4 mg/dL (7.0-18.7); Bilirubin, Total 0.3 mg/dL (0.2-1.2); Calc. Creatinine Clearance 165 mL/min (70-130); Carbon Dioxide 22 mmol/L (22-29); Chloride 105 mmol/L (98-107); Globulin 2.8 g/dL (2.4-3.5); Glucose 192 mg/dL (70-105); Lipase 82 U/L (8-78); Magnesium 2.1 mg/dL (1.6-2.6); Potassium 3.7 mmol/L (3.5-5.1); Protein, Total 6.2 g/dL (6.0-8.3); Sodium 136 mmol/L (136-145)
[2021-04-10] MEDS: Enoxaparin Sodium 40 MG/0.4 ML SYRINGE SC SCH (08:29)
[2021-04-10] MEDS: Pantoprazole 40 MG VIAL IVP SCH ×2 (08:30→20:33)
[2021-04-10] MEDS: Thiamine 100 MG TAB PO SCH (08:30)
[2021-04-10] MEDS: Multivit, Therapeutic 1 TAB PO SCH (08:30)
[2021-04-10] MEDS: Folic Acid 1 MG TAB PO SCH (08:30)
[2021-04-10] MEDS ORDERED: FLU VACC QS2021-22(6MOS UP)/PF 60 MCG/0.5 ML SYRINGE IM ONE (10:00)
[2021-04-10] MEDS ORDERED: FLU VACC QS2021-22(65YR UP)/PF 240 MCG/0.7 ML SYRINGE IM ONE (12:15)
[2021-04-10] MEDS: pyridOXINE 50 MG (B6) TAB PO SCH (20:32)
[2021-04-10] MEDS: Cyanocobalamin (Vitamin B-12) 1,000 MCG TAB PO SCH (20:33)
[2021-04-11] MEDS: Morphine 4 MG/ML VIAL SLOW IVP PRN ×3 (00:47→09:17)
[2021-04-11] MEDS: HumaLOG 300 UNITS/3 ML VIAL SC PRN ×2 (05:08→16:05)
[2021-04-11 05:56] LABS: #Eosinphils 0.2 thou/uL (0.0-0.7); #Lymphocytes 1.8 thou/uL (1.20-3.40); #Monocytes 0.5 thou/uL (0.11-0.59); #Neutrophils 3.1 thou/uL (1.40-6.50); %Basophils 0.7 % (0.0-1.0); %Eosinophils 3.6 % (0.0-10.0); %Lymphocytes 31.6 % (21.0-51.0); %Monocytes 9.1 % (0.0-10.0); %Neutrophils 54.9 % (42.0-75.0); Mean Corpuscular HGB CONC 34.2 g/dL (32.0-36.0); Mean Corpuscular Hemoglobin 28.9 pg (27.0-31.0); Mean Corpuscular Volume 84.4 fL (78.0-98.0); Mean Platelet Volume 9.9 fL (7.4-10.4); Platelet Count 260 thou/uL (130-400); RBC Distribution Width 18.3 % (11.5-14.5); Red Blood Cell (RBC) Count 3.47 mill/uL (4.20-5.40); White Blood Cell (WBC) Count 5.7 thou/uL (4.8-10.8)
[2021-04-11 06:31] LABS: ALT (SGPT) 32 U/L (8-55); AST (SGOT) 80 U/L (5-34); Albumin 3.5 g/dL (3.5-5.0); Alkaline Phosphatase 95 U/L (40-110); Anion Gap 9 mmol/L (10-20); BUN (Urea Nitrogen) 4 mg/dL (7.0-18.7); Bilirubin, Total 0.2 mg/dL (0.2-1.2); Calc. Creatinine Clearance 169 mL/min (70-130); Calcium 8.5 mg/dL (7.8-10.44); Carbon Dioxide 22 mmol/L (22-29); Chloride 109 mmol/L (98-107); Globulin 3.2 g/dL (2.4-3.5); Glucose 147 mg/dL (70-105); Potassium 3.7 mmol/L (3.5-5.1); Protein, Total 6.7 g/dL (6.0-8.3); Sodium 136 mmol/L (136-145)
[2021-04-11] MEDS: Multivit, Therapeutic 1 TAB PO SCH (08:28)
[2021-04-11] MEDS: Enoxaparin Sodium 40 MG/0.4 ML SYRINGE SC SCH (08:28)
[2021-04-11] MEDS: Thiamine 100 MG TAB PO SCH (08:28)
[2021-04-11] MEDS: Folic Acid 1 MG TAB PO SCH (08:28)
[2021-04-11] MEDS: Pantoprazole 40 MG VIAL IVP SCH (08:29)
[2021-04-11] MEDS ORDERED: Morphine 4 MG/ML VIAL SLOW IVP PRN (13:27)
[2021-04-11 19:12] VITALS: BP 146/100; TEMP 98.1
== END 2021-04-11 18:41 | disposition home or self-care (01) | DRG 439 ==
LOC: ERS 01:02 → ERHOLD 04:51 → SJJU 09:58 → OBSVTOIN 11:49
PROVIDERS: ADMIT Internal Medicine; ATTEND Internal Medicine
DX: K85.91 Acute pancreatitis with uninfected necrosis, unspecified (principal); K86.3 Pseudocyst of pancreas; N17.9 Acute kidney failure, unspecified; F20.9 Schizophrenia, unspecified; F41.9 Anxiety disorder, unspecified; F43.10 Post-traumatic stress disorder, unspecified; Z20.822 Contact with and (suspected) exposure to COVID-19; K21.9 Gastro-esophageal reflux disease without esophagitis; F10.10 Alcohol abuse, uncomplicated; E11.65 Type 2 diabetes mellitus with hyperglycemia; K86.1 Other chronic pancreatitis
CPT/HCPCS: 36415; 36416; 74177; 80053; 81003; 82010; 83036; 83690; 83735; 84100; 84703; 85025; 90471; 90686; 90732; 96374; 96375; C9113; G0008; G0009; J1650; J1815; J2270; J2405; J3475; J7050; Q9967; U0002

== ENCOUNTER 2021-05-29 16:30 | Inpatient (IN) | payer SELFPAY ==
[2021-05-29 17:16] LABS: #Basophils 0.1 thou/uL (0.0-0.2); #Eosinphils 0.2 thou/uL (0.0-0.7); #Lymphocytes 2.9 thou/uL (1.20-3.40); #Monocytes 0.7 thou/uL (0.11-0.59); #Neutrophils 6.9 thou/uL (1.40-6.50); %Basophils 1.2 % (0.0-1.0); %Eosinophils 1.4 % (0.0-10.0); %Lymphocytes 26.7 % (21.0-51.0); %Monocytes 6.4 % (0.0-10.0); %Neutrophils 64.2 % (42.0-75.0); Mean Corpuscular HGB CONC 35.2 g/dL (32.0-36.0); Mean Corpuscular Hemoglobin 29.5 pg (27.0-31.0); Mean Corpuscular Volume 83.7 fL (78.0-98.0); Mean Platelet Volume 8.9 fL (7.4-10.4); Platelet Count 345 thou/uL (130-400); RBC Distribution Width 16.7 % (11.5-14.5); Red Blood Cell (RBC) Count 4.42 mill/uL (4.20-5.40); White Blood Cell (WBC) Count 10.7 thou/uL (4.8-10.8)
[2021-05-29] MEDS ORDERED: Morphine 4 MG/ML VIAL ONE ×4 (17:22→23:36)
[2021-05-29] MEDS ORDERED: Ondansetron PF 4 MG/2 ML Vial ONE ×2 (17:22→22:35)
[2021-05-29 17:36] LABS: ALT (SGPT) 33 U/L (8-55); AST (SGOT) 53 U/L (5-34); Albumin 4.2 g/dL (3.5-5.0); Alkaline Phosphatase 103 U/L (40-110); Anion Gap 19 mmol/L (10-20); BUN (Urea Nitrogen) 7 mg/dL (7.0-18.7); Bilirubin, Total 0.6 mg/dL (0.2-1.2); Calc. Creatinine Clearance 0 mL/min (70-130); Calcium 9.5 mg/dL (7.8-10.44); Carbon Dioxide 16 mmol/L (22-29); Chloride 95 mmol/L (98-107); Globulin 4.1 g/dL (2.4-3.5); Glucose 393 mg/dL (70-105); Lipase 163 U/L (8-78); Protein, Total 8.3 g/dL (6.0-8.3); Sodium 126 mmol/L (136-145)
[2021-05-29 17:39] LABS: Actual Bicarbonate (HCO3v) 15 mEq/L (22-28); Analyzer IN Cardio ER; Base Excess -10.2 mEq/L (-2.0 to +3.0); Calcium, Ionized (venous) 1.14 mmol/L (1.16-1.32); Chloride (VBG) 97 mmol/L (98-106); Potassium (VBG) 3.83 mmol/L (3.70-5.30); Sodium 130.2 mmol/L (133-146)
[2021-05-29 18:05] LABS: Bilirubin Negative (Negative); Blood, Urine Negative (Negative); Clarity Clear (Clear); Glucose, Urine (Dipstick) Greater than 1000 mg/dL (Negative); Ketone, Urine 20 mg/dL (Negative); Leukocyte Negative Leu/uL (Negative); Nitrite Negative (Negative); Protein, Urine (Dipstick) Negative (Neg-Trace); Specific Gravity, Urine 1.021 (1.002-1.036); Urobilinogen Normal mg/dL (Less than 2)
[2021-05-29 18:06] LABS: Pregnancy Test - Urine (BHCG) Negative (Negative); Pregu Control Background? CLEAR/WHITE (CLR/WHITE); Pregu Control Bar Appear? YES (CONTROL BAR); Specific Gravity 1.021 (1.002-1.036)
[2021-05-29] MEDS ORDERED: Dextrose 50% Abboject 50 ML SYRINGE SLOW IVP PRN ×2 (19:28→20:43)
[2021-05-29] MEDS ORDERED: Insulin Regular 100 units/100 ml in NS IVPB SCH (19:30)
[2021-05-29] MEDS ORDERED: Dextrose 5% in Water 1,000 ML IV PRN ×2 (19:30→20:43)
[2021-05-29] MEDS ORDERED: INSULIN REGULAR IN 0.9 % NACL 100 UNIT/100 ML BAG ONE ×3 (19:47→19:50)
[2021-05-29] MEDS ORDERED: Dextrose 5 %-0.45 % NaCl 1,000 ML IV SCH (20:00)
[2021-05-29] MEDS ORDERED: D5 1/2 NS w/20 mEq KCL 1,000 ML IV SCH (20:15)
[2021-05-29] MEDS ORDERED: Ondansetron ODT 4 MG TAB PO PRN (20:16)
[2021-05-29] MEDS ORDERED: Acetaminophen 325 MG TAB PO PRN (20:16)
[2021-05-29] MEDS ORDERED: Acetaminophen 650 MG Suppository PR PRN (20:16)
[2021-05-29] MEDS ORDERED: Ondansetron PF 4 MG/2 ML Vial IVP PRN (20:16)
[2021-05-29 20:19] LABS: Lactic Acid 4.8 mmol/L (0.5-2.2)
[2021-05-29] MEDS ORDERED: hydrALAZINE 20 MG/ML VIAL SLOW IVP PRN (20:41)
[2021-05-29] MEDS ORDERED: HumaLOG 300 UNITS/3 ML VIAL SC PRN (20:43)
[2021-05-29] MEDS ORDERED: Electrolyte Replacement Protocol 1 EACH FS SCH (20:45)
[2021-05-29] MEDS: Morphine 4 MG/ML VIAL SLOW IVP PRN ×2 (21:11→23:15)
[2021-05-29] MEDS ORDERED: Dextrose 5 %-0.45 % NaCl 1,000 ML IV PRN (21:34)
[2021-05-29] MEDS ORDERED: NS 0.9% w/ 20 MEQ KCL 1,000 ML IV PRN ×2 (21:34)
[2021-05-29] MEDS ORDERED: Sodium Chloride 0.9% 1,000 ML IV PRN ×2 (21:34)
[2021-05-29] MEDS ORDERED: Electrolyte Replacement Protocol 1 EACH IVPB ONE (21:34)
[2021-05-29] MEDS ORDERED: D5 1/2 NS w/20 mEq KCL 1,000 ML IV PRN (21:34)
[2021-05-29] MEDS ORDERED: HUMULIN R 100 UNITS in Sodium Chloride 0.9% 100 ML IVPB SCH (21:45)
[2021-05-29 22:05] LABS: Anion Gap 19 mmol/L (10-20); BUN (Urea Nitrogen) 6 mg/dL (7.0-18.7); Calc. Creatinine Clearance 0 mL/min (70-130); Calcium 8.5 mg/dL (7.8-10.44); Carbon Dioxide 14 mmol/L (22-29); Chloride 101 mmol/L (98-107); Glucose 305 mg/dL (70-105); Magnesium 1.4 mg/dL (1.6-2.6); Phosphorus 2.5 mg/dL (2.3-4.7); Potassium 4.1 mmol/L (3.5-5.1); Sodium 130 mmol/L (136-145)
[2021-05-30] MEDS ORDERED: Magnesium Sulfate 4 GM in Sodium Chloride 0.9% 250 ML 250 ML IVPB SCH (00:30)
[2021-05-30] MEDS ORDERED: Magnesium 2 GM/50 ML BAG (IN WATER) ONE (00:31)
[2021-05-30 01:07] LABS: SARS-CoV-2 NAA Rapid Test Not Detected (NotDetected)
[2021-05-30] MEDS ORDERED: Morphine 4 MG/ML VIAL ONE ×3 (01:44→04:09)
[2021-05-30] MEDS ORDERED: Ketorolac Tromethamine 30 MG/ML VIAL ONE (01:44)
[2021-05-30] MEDS ORDERED: Ketorolac Tromethamine 30 MG/ML VIAL IVP SCH (01:45)
[2021-05-30] MEDS: Morphine 4 MG/ML VIAL SLOW IVP PRN ×10 (02:00→23:46)
[2021-05-30 03:00] LABS: Anion Gap 15 mmol/L (10-20); BUN (Urea Nitrogen) 5 mg/dL (7.0-18.7); Calc. Creatinine Clearance 0 mL/min (70-130); Calcium 8.7 mg/dL (7.8-10.44); Carbon Dioxide 19 mmol/L (22-29); Chloride 100 mmol/L (98-107); Glucose 169 mg/dL (70-105); Potassium 3.6 mmol/L (3.5-5.1); Sodium 130 mmol/L (136-145)
[2021-05-30] MEDS ORDERED: Sodium Chloride 0.9% 1,000 ML IV SCH (03:30)
[2021-05-30] MEDS ORDERED: Lantus 1000 UNITS/10 ML VIAL SC SCH (03:30)
[2021-05-30] MEDS ORDERED: Insulin Regular 300 UNITS/3 ML VIAL ONE (04:09)
[2021-05-30] MEDS: HumaLOG 300 UNITS/3 ML VIAL SC PRN ×3 (04:22→17:28)
[2021-05-30 04:37] LABS: #Basophils 0.1 thou/uL (0.0-0.2); #Eosinphils 0.1 thou/uL (0.0-0.7); #Lymphocytes 1.2 thou/uL (1.20-3.40); #Neutrophils 10.6 thou/uL (1.40-6.50); %Basophils 0.4 % (0.0-1.0); %Eosinophils 0.5 % (0.0-10.0); %Monocytes 7.6 % (0.0-10.0); %Neutrophils 82.5 % (42.0-75.0); Hemoglobin 12.8 g/dL (12.0-16.0); Mean Corpuscular HGB CONC 34.3 g/dL (32.0-36.0); Mean Corpuscular Hemoglobin 28.9 pg (27.0-31.0); Mean Corpuscular Volume 84.2 fL (78.0-98.0); Mean Platelet Volume 8.6 fL (7.4-10.4); Platelet Count 290 thou/uL (130-400); RBC Distribution Width 16.8 % (11.5-14.5); Red Blood Cell (RBC) Count 4.44 mill/uL (4.20-5.40); White Blood Cell (WBC) Count 12.9 thou/uL (4.8-10.8)
[2021-05-30 05:07] LABS: Lactic Acid 2.5 mmol/L (0.5-2.2)
[2021-05-30 05:12] LABS: Anion Gap 15 mmol/L (10-20); BUN (Urea Nitrogen) 4 mg/dL (7.0-18.7); Calc. Creatinine Clearance 0 mL/min (70-130); Calcium 8.7 mg/dL (7.8-10.44); Carbon Dioxide 17 mmol/L (22-29); Chloride 100 mmol/L (98-107); Glucose 188 mg/dL (70-105); Magnesium 2.8 mg/dL (1.6-2.6); Sodium 128 mmol/L (136-145)
[2021-05-30 06:20] LABS: Anion Gap 13 mmol/L (10-20); BUN (Urea Nitrogen) 4 mg/dL (7.0-18.7); Calc. Creatinine Clearance 0 mL/min (70-130); Calcium 8.9 mg/dL (7.8-10.44); Carbon Dioxide 18 mmol/L (22-29); Chloride 101 mmol/L (98-107); Glucose 176 mg/dL (70-105); Potassium 3.9 mmol/L (3.5-5.1); Sodium 128 mmol/L (136-145)
[2021-05-30] MEDS: Enoxaparin Sodium 40 MG/0.4 ML SYRINGE SC SCH (08:42)
[2021-05-30] MEDS ORDERED: Iopamidol 370 76% 100 ML VIAL ONE (09:45)
[2021-05-30] MEDS ORDERED: Dextrose 5% in Water 1,000 ML IV PRN (09:57)
[2021-05-30 14:29] LABS: Lactic Acid 2.1 mmol/L (0.5-2.2)
[2021-05-30 14:34] LABS: Magnesium 2.2 mg/dL (1.6-2.6)
[2021-05-30] MEDS: Sodium Chloride 0.9% 1,000 ML IV SCH ×2 (16:21→20:00)
[2021-05-30 17:34] VITALS: BMI 35.2
[2021-05-30] MEDS: Labetalol 100 MG TAB PO SCH (20:00)
[2021-05-30] MEDS ORDERED: Lidocaine 2% Viscous Solution 20 ML, Aluminum & Magnesium Hydroxide 30 ML, Donnatal Eli... SSW SCH (21:30)
[2021-05-30 21:53] LABS: Troponin I Less than 0.010 ng/mL (< 0.028)
[2021-05-31] MEDS: Morphine 4 MG/ML VIAL SLOW IVP PRN ×4 (01:59→08:56)
[2021-05-31 05:17] LABS: #Eosinphils 0.2 thou/uL (0.0-0.7); #Lymphocytes 1.7 thou/uL (1.20-3.40); #Monocytes 0.6 thou/uL (0.11-0.59); #Neutrophils 4.6 thou/uL (1.40-6.50); %Basophils 0.4 % (0.0-1.0); %Eosinophils 2.3 % (0.0-10.0); %Lymphocytes 24.2 % (21.0-51.0); %Monocytes 8.9 % (0.0-10.0); %Neutrophils 64.1 % (42.0-75.0); Hemoglobin 10.7 g/dL (12.0-16.0); Mean Corpuscular HGB CONC 34.8 g/dL (32.0-36.0); Mean Corpuscular Hemoglobin 29.6 pg (27.0-31.0); Mean Corpuscular Volume 85.2 fL (78.0-98.0); Mean Platelet Volume 9.2 fL (7.4-10.4); Platelet Count 195 thou/uL (130-400); RBC Distribution Width 16.3 % (11.5-14.5); Red Blood Cell (RBC) Count 3.61 mill/uL (4.20-5.40); White Blood Cell (WBC) Count 7.1 thou/uL (4.8-10.8)
[2021-05-31 05:38] LABS: ALT (SGPT) 17 U/L (8-55); AST (SGOT) 22 U/L (5-34); Albumin 3.5 g/dL (3.5-5.0); Alkaline Phosphatase 73 U/L (40-110); Anion Gap 10 mmol/L (10-20); BUN (Urea Nitrogen) Less than 4 mg/dL (7.0-18.7); Bilirubin, Total 0.6 mg/dL (0.2-1.2); Calc. Creatinine Clearance 168 mL/min (70-130); Calcium 8.2 mg/dL (7.8-10.44); Carbon Dioxide 23 mmol/L (22-29); Chloride 101 mmol/L (98-107); Globulin 3.4 g/dL (2.4-3.5); Glucose 227 mg/dL (70-105); Lipase 67 U/L (8-78); Potassium 3.5 mmol/L (3.5-5.1); Protein, Total 6.9 g/dL (6.0-8.3); Sodium 130 mmol/L (136-145)
[2021-05-31] MEDS: HumaLOG 300 UNITS/3 ML VIAL SC PRN (05:57)
[2021-05-31] MEDS: Sodium Chloride 0.9% 1,000 ML IV SCH ×2 (06:01→08:55)
[2021-05-31 08:53] VITALS: BP 114/75; TEMP 98
[2021-05-31] MEDS: Enoxaparin Sodium 40 MG/0.4 ML SYRINGE SC SCH (08:54)
[2021-05-31] MEDS: Labetalol 100 MG TAB PO SCH (08:54)
[2021-05-31] MEDS ORDERED: Lantus 1000 UNITS/10 ML VIAL SC SCH (09:00)
[2021-05-31] MEDS ORDERED: Electrolyte Replacement Protocol FS PRN (09:45)
[2021-05-31] MEDS ORDERED: Potassium Chloride 20 MEQ TAB PO SCH (10:00)
[2021-06-02] MEDS ORDERED: FLU VACC QS2021-22(6MOS UP)/PF 60 MCG/0.5 ML SYRINGE IM ONE (17:45)
== END 2021-05-31 12:15 | disposition home or self-care (01) | DRG 438 ==
LOC: ERS 16:30 → ERHOLD 19:43 → 2NO 05-30 06:12
PROVIDERS: ADMIT Student in an Organized Health Care Education/Training Program; ATTEND Family Medicine
DX: K85.90 Acute pancreatitis without necrosis or infection, unspecified (principal); E11.10 Type 2 diabetes mellitus with ketoacidosis without coma; E87.2 Acidosis; Z20.822 Contact with and (suspected) exposure to COVID-19; I10 Essential (primary) hypertension; E86.0 Dehydration; F20.9 Schizophrenia, unspecified; F31.9 Bipolar disorder, unspecified; F10.10 Alcohol abuse, uncomplicated; F43.10 Post-traumatic stress disorder, unspecified; Z79.84 Long term (current) use of oral hypoglycemic drugs; Z79.899 Other long term (current) drug therapy
CPT/HCPCS: 36415; 36416; 71045; 74177; 80048; 80053; 80307; 81003; 81025; 82010; 82150; 82805; 83605; 83690; 83735; 84100; 84484; 85025; 93005; 96365; 96366; 96375; 96376; J1650; J1815; J1885; J2270; J2405; J3475; J7042; J7050; Q0162; U0002

== ENCOUNTER 2021-08-14 18:56 | Inpatient (IN) | payer MEDICAID, SELFPAY ==
[~2021-08-14 18:56] MED LIST changes: +Iopamidol 370 76% 100 ML VIAL ONE; -Iopamidol-370 76% 500 ML 1 ML ONE
[2021-08-14] MEDS ORDERED: Morphine 4 MG/ML VIAL ONE ×2 (19:20→21:31)
[2021-08-14] MEDS ORDERED: Ondansetron PF 4 MG/2 ML Vial ONE (19:20)
[2021-08-14 19:25] LABS: #Basophils 0.1 thou/uL (0.0-0.2); #Eosinphils 0.2 thou/uL (0.0-0.7); #Lymphocytes 2.4 thou/uL (1.20-3.40); #Monocytes 0.5 thou/uL (0.11-0.59); #Neutrophils 4.3 thou/uL (1.40-6.50); %Basophils 1.4 % (0.0-1.0); %Lymphocytes 32.1 % (21.0-51.0); %Monocytes 6.7 % (0.0-10.0); %Neutrophils 56.9 % (42.0-75.0); Hemoglobin 12.6 g/dL (12.0-16.0); Mean Corpuscular HGB CONC 34.6 g/dL (32.0-36.0); Mean Corpuscular Hemoglobin 28.9 pg (27.0-31.0); Mean Corpuscular Volume 83.6 fL (78.0-98.0); Mean Platelet Volume 10.2 fL (7.4-10.4); Platelet Count 247 thou/uL (130-400); RBC Distribution Width 15.5 % (11.5-14.5); Red Blood Cell (RBC) Count 4.35 mill/uL (4.20-5.40); White Blood Cell (WBC) Count 7.5 thou/uL (4.8-10.8)
[2021-08-14 19:59] LABS: ALT (SGPT) 16 U/L (8-55); AST (SGOT) 24 U/L (5-34); Albumin 4.1 g/dL (3.5-5.0); Alkaline Phosphatase 112 U/L (40-110); Anion Gap 21 mmol/L (10-20); BUN (Urea Nitrogen) 10 mg/dL (7.0-18.7); Bilirubin, Total 0.3 mg/dL (0.2-1.2); Calc. Creatinine Clearance 0 mL/min (70-130); Calcium 9.3 mg/dL (7.8-10.44); Carbon Dioxide 16 mmol/L (22-29); Chloride 96 mmol/L (98-107); Globulin 3.7 g/dL (2.4-3.5); Glucose 389 mg/dL (70-105); Lipase 111 U/L (8-78); Potassium 3.9 mmol/L (3.5-5.1); Protein, Total 7.8 g/dL (6.0-8.3); Sodium 129 mmol/L (136-145)
[2021-08-14 20:02] LABS: BHCG - Serum Negative (NEGATIVE); Pregs Control Background? CLEAR/WHITE (CLR/WHITE); Pregs Control Bar Appear? YES (CONTROL BAR)
[2021-08-14] MEDS ORDERED: Dicyclomine 20 MG/2 ML VIAL ONE (20:31)
[2021-08-14 20:58] LABS: Bilirubin Negative (Negative); Blood, Urine Negative (Negative); Clarity Clear (Clear); Glucose, Urine (Dipstick) Greater than 1000 mg/dL (Negative); Ketone, Urine 10 mg/dL (Negative); Leukocyte Negative Leu/uL (Negative); Nitrite Negative (Negative); Protein, Urine (Dipstick) Negative (Neg-Trace); Specific Gravity, Urine 1.032 (1.002-1.036); Urobilinogen Normal mg/dL (Less than 2); pH, Urine 5.5 (5.0-9.0)
[2021-08-14] MEDS ORDERED: Ketorolac Tromethamine 30 MG/ML VIAL ONE (21:31)
[2021-08-14 23:44] LABS: Anion Gap 16 mmol/L (10-20); BUN (Urea Nitrogen) 9 mg/dL (7.0-18.7); Calc. Creatinine Clearance 0 mL/min (70-130); Calcium 8.4 mg/dL (7.8-10.44); Carbon Dioxide 18 mmol/L (22-29); Chloride 100 mmol/L (98-107); Glucose 477 mg/dL (70-105); Potassium 4.1 mmol/L (3.5-5.1); Sodium 130 mmol/L (136-145)
[2021-08-14 23:46] LABS: Actual Bicarbonate (HCO3v) 20 mEq/L (22-28); Analyzer IN Cardio ER; Base Excess -5.1 mEq/L (-2.0 to +3.0); Chloride (VBG) 101 mmol/L (98-106); Hemoglobin (Hb) 13.4 g/dL (11.7-15.5); Potassium (VBG) 4.04 mmol/L (3.70-5.30); Sodium 131.4 mmol/L (133-146); pH (venous) 7.36 (7.32-7.43)
[2021-08-15] MEDS ORDERED: Morphine 4 MG/ML VIAL ONE (00:28)
[2021-08-15] MEDS ORDERED: Dextrose 5% in Water 1,000 ML IV PRN (01:26)
[2021-08-15] MEDS ORDERED: Bisacodyl 5 MG TAB PO PRN (01:26)
[2021-08-15] MEDS ORDERED: Dextrose 50% Abboject 50 ML SYRINGE SLOW IVP PRN (01:26)
[2021-08-15] MEDS ORDERED: hydrALAZINE 20 MG/ML VIAL SLOW IVP PRN (01:29)
[2021-08-15] MEDS: HYDROcodone/Acetaminophen 5/325 mg Tablet PO PRN ×5 (02:32→20:22)
[2021-08-15] MEDS: Sodium Chloride 0.9% 1,000 ML IV SCH ×3 (02:33→20:25)
[2021-08-15 02:58] VITALS: BMI 30.9
[2021-08-15 04:59] LABS: ALT (SGPT) 12 U/L (8-55); AST (SGOT) 15 U/L (5-34); Albumin 3.7 g/dL (3.5-5.0); Alkaline Phosphatase 89 U/L (40-110); Anion Gap 13 mmol/L (10-20); BUN (Urea Nitrogen) 8 mg/dL (7.0-18.7); Bilirubin, Total 0.3 mg/dL (0.2-1.2); Calc. Creatinine Clearance 122 mL/min (70-130); Calcium 8.5 mg/dL (7.8-10.44); Carbon Dioxide 21 mmol/L (22-29); Chloride 100 mmol/L (98-107); Globulin 3.1 g/dL (2.4-3.5); Glucose 454 mg/dL (70-105); Lipase 216 U/L (8-78); Potassium 3.9 mmol/L (3.5-5.1); Protein, Total 6.8 g/dL (6.0-8.3); Sodium 130 mmol/L (136-145)
[2021-08-15] MEDS: Morphine 4 MG/ML VIAL SLOW IVP PRN ×5 (05:08→21:59)
[2021-08-15] MEDS: HumaLOG 300 UNITS/3 ML VIAL SC PRN ×4 (05:09→20:24)
[2021-08-15 06:01] LABS: Band 5 % (5-11); Eosinophils 1 % (0-10); Lymphocytes 34 % (21-51); MDiff Complete? YES; Mean Corpuscular HGB CONC 33.8 g/dL (32.0-36.0); Mean Corpuscular Hemoglobin 28.6 pg (27.0-31.0); Mean Corpuscular Volume 84.6 fL (78.0-98.0); Mean Platelet Volume 10.2 fL (7.4-10.4); Monocytes 8 % (0-10); Neutrophil 52 % (42-75); Platelet Count 242 thou/uL (130-400); RBC Distribution Width 15.7 % (11.5-14.5); Red Blood Cell (RBC) Count 4.21 mill/uL (4.20-5.40); White Blood Cell (WBC) Count 7.3 thou/uL (4.8-10.8)
[2021-08-15] MEDS ORDERED: GUAIFENESIN SF SOLN 200 MG/10 ML UDCUP PO PRN (07:42)
[2021-08-15] MEDS ORDERED: Loperamide HCl 2 MG CAP PO PRN (07:42)
[2021-08-15] MEDS ORDERED: Loratadine 10 MG TAB PO PRN (07:42)
[2021-08-15] MEDS ORDERED: Calcium Carbonate 500 MG ChewTAB PO PRN (07:42)
[2021-08-15] MEDS: Labetalol HCl 100 MG TAB PO SCH ×2 (07:48→20:22)
[2021-08-15] MEDS: Enoxaparin Sodium 40 MG/0.4 ML SYRINGE SC SCH (07:52)
[2021-08-15] MEDS: Folic Acid 1 MG TAB PO SCH (08:53)
[2021-08-15] MEDS: Multivitamin W/ Minerals 1 TAB PO SCH (08:53)
[2021-08-15] MEDS: Thiamine 100 MG TAB PO SCH (08:53)
[2021-08-15] MEDS: Pantoprazole 40 MG VIAL IVP SCH (08:54)
[2021-08-15] MEDS ORDERED: Magnevist 469MG/ML 20 ML VIAL ONE (10:30)
[2021-08-15 12:12] LABS: SARS-CoV-2 PCR by NAA Not Detected (NotDetected)
[2021-08-15] MEDS: Ondansetron PF 4 MG/2 ML Vial IVP PRN (17:38)
[2021-08-15 18:26] LABS: Anion Gap 8 mmol/L (10-20); BUN (Urea Nitrogen) 4 mg/dL (7.0-18.7); Calc. Creatinine Clearance 153 mL/min (70-130); Calcium 8.3 mg/dL (7.8-10.44); Carbon Dioxide 24 mmol/L (22-29); Chloride 100 mmol/L (98-107); Glucose 306 mg/dL (70-105); Potassium 3.3 mmol/L (3.5-5.1); Sodium 129 mmol/L (136-145)
[2021-08-15] MEDS: Lantus 1000 UNITS/10 ML VIAL SC SCH (20:23)
[2021-08-15] MEDS: Zolpidem Tartrate 5 MG TAB PO PRN (23:12)
[2021-08-16] MEDS: HYDROcodone/Acetaminophen 5/325 mg Tablet PO PRN ×6 (00:39→20:09)
[2021-08-16] MEDS: Morphine 4 MG/ML VIAL SLOW IVP PRN ×6 (01:53→21:42)
[2021-08-16 06:04] LABS: #Eosinphils 0.2 thou/uL (0.0-0.7); #Lymphocytes 2.1 thou/uL (1.20-3.40); #Monocytes 0.5 thou/uL (0.11-0.59); #Neutrophils 3.7 thou/uL (1.40-6.50); %Basophils 0.6 % (0.0-1.0); %Eosinophils 2.4 % (0.0-10.0); %Lymphocytes 32.5 % (21.0-51.0); %Monocytes 7.9 % (0.0-10.0); %Neutrophils 56.6 % (42.0-75.0); Hemoglobin 10.8 g/dL (12.0-16.0); Mean Corpuscular HGB CONC 34.1 g/dL (32.0-36.0); Mean Corpuscular Volume 85.1 fL (78.0-98.0); Mean Platelet Volume 10.7 fL (7.4-10.4); Platelet Count 194 thou/uL (130-400); RBC Distribution Width 15.8 % (11.5-14.5); Red Blood Cell (RBC) Count 3.72 mill/uL (4.20-5.40); White Blood Cell (WBC) Count 6.5 thou/uL (4.8-10.8)
[2021-08-16] MEDS ORDERED: Sodium Chloride 0.9% 1,000 ML IV SCH (06:08)
[2021-08-16] MEDS: HumaLOG 300 UNITS/3 ML VIAL SC PRN ×3 (06:21→20:16)
[2021-08-16 06:39] LABS: ALT (SGPT) 11 U/L (8-55); AST (SGOT) 15 U/L (5-34); Albumin 3.6 g/dL (3.5-5.0); Alkaline Phosphatase 60 U/L (40-110); Anion Gap 9 mmol/L (10-20); BUN (Urea Nitrogen) Less than 4 mg/dL (7.0-18.7); Bilirubin, Total 0.3 mg/dL (0.2-1.2); CRP (Inflammatory) 2.97 mg/dL (= or < 0.5); Calc. Creatinine Clearance 169 mL/min (70-130); Calcium 8.3 mg/dL (7.8-10.44); Carbon Dioxide 24 mmol/L (22-29); Chloride 105 mmol/L (98-107); Globulin 2.9 g/dL (2.4-3.5); Glucose 157 mg/dL (70-105); Lipase 51 U/L (8-78); Magnesium 1.5 mg/dL (1.6-2.6); Phosphorus 2.8 mg/dL (2.3-4.7); Potassium 3.2 mmol/L (3.5-5.1); Protein, Total 6.5 g/dL (6.0-8.3); Sodium 135 mmol/L (136-145)
[2021-08-16] MEDS ORDERED: Potassium Chloride 20 MEQ TAB PO SCH (07:30)
[2021-08-16] MEDS: Lactated Ringer's 1,000 ML IV SCH ×3 (07:36→20:19)
[2021-08-16] MEDS ORDERED: Magnesium Sulfate 2 GM in Sodium Chloride 0.9% 100 ML IVPB SCH (07:45)
[2021-08-16] MEDS: Fenofibrate Nanocrystallized 145 MG TAB PO SCH (08:30)
[2021-08-16] MEDS: Enoxaparin Sodium 40 MG/0.4 ML SYRINGE SC SCH (08:32)
[2021-08-16] MEDS: Lantus 1000 UNITS/10 ML VIAL SC SCH ×2 (08:32→20:15)
[2021-08-16] MEDS: Multivitamin W/ Minerals 1 TAB PO SCH (08:33)
[2021-08-16] MEDS: Folic Acid 1 MG TAB PO SCH (08:33)
[2021-08-16] MEDS: Pantoprazole 40 MG VIAL IVP SCH (08:33)
[2021-08-16] MEDS: Labetalol HCl 100 MG TAB PO SCH ×2 (08:33→20:10)
[2021-08-16] MEDS: Thiamine 100 MG TAB PO SCH (08:33)
[2021-08-16] MEDS ORDERED: Magnesium 2 GM/50 ML 2 GM in Premix Bag 1 BAG IVPB SCH (09:00)
[2021-08-16] MEDS: Ondansetron PF 4 MG/2 ML Vial IVP PRN (17:29)
[2021-08-16] MEDS: Zolpidem Tartrate 5 MG TAB PO PRN (21:43)
[2021-08-17] MEDS: HYDROcodone/Acetaminophen 5/325 mg Tablet PO PRN ×5 (00:38→22:56)
[2021-08-17] MEDS: Morphine 4 MG/ML VIAL SLOW IVP PRN ×5 (02:16→19:25)
[2021-08-17] MEDS: Ondansetron ODT 4 MG TAB PO PRN ×2 (02:21→15:00)
[2021-08-17] MEDS: HumaLOG 300 UNITS/3 ML VIAL SC PRN (04:30)
[2021-08-17] MEDS: Lactated Ringer's 1,000 ML IV SCH ×2 (04:34→09:34)
[2021-08-17 08:27] LABS: Anion Gap 10 mmol/L (10-20); BUN (Urea Nitrogen) Less than 4 mg/dL (7.0-18.7); Calc. Creatinine Clearance 167 mL/min (70-130); Carbon Dioxide 25 mmol/L (22-29); Chloride 106 mmol/L (98-107); Glucose 67 mg/dL (70-105); Magnesium 1.6 mg/dL (1.6-2.6); Potassium 3.5 mmol/L (3.5-5.1); Sodium 137 mmol/L (136-145)
[2021-08-17] MEDS: Enoxaparin Sodium 40 MG/0.4 ML SYRINGE SC SCH (08:30)
[2021-08-17] MEDS: Lantus 1000 UNITS/10 ML VIAL SC SCH ×2 (08:31→20:21)
[2021-08-17] MEDS: Folic Acid 1 MG TAB PO SCH (08:31)
[2021-08-17] MEDS: Thiamine 100 MG TAB PO SCH (08:31)
[2021-08-17] MEDS: Fenofibrate Nanocrystallized 145 MG TAB PO SCH (08:31)
[2021-08-17] MEDS: Pantoprazole 40 MG VIAL IVP SCH (08:31)
[2021-08-17] MEDS: Multivitamin W/ Minerals 1 TAB PO SCH (08:31)
[2021-08-17 08:48] LABS: Band 2 % (5-11); Eosinophils 3 % (0-10); Hemoglobin 10.7 g/dL (12.0-16.0); Large Platelets SLIGHT; Lymphocytes 13 % (21-51); MDiff Complete? YES; Mean Corpuscular HGB CONC 34.3 g/dL (32.0-36.0); Mean Corpuscular Hemoglobin 29.8 pg (27.0-31.0); Mean Corpuscular Volume 86.9 fL (78.0-98.0); Mean Platelet Volume 11.2 fL (7.4-10.4); Monocytes 5 % (0-10); Neutrophil 75 % (42-75); Platelet Count 182 thou/uL (130-400); Platelet Morphology Comment Appears Adequate; Polychromasia SLIGHT = 2-3 cells (100X) (0-2/hpf); RBC Distribution Width 16.8 % (11.5-14.5); Reactive Lymphocytes 1 % (0-10); Red Blood Cell (RBC) Count 3.57 mill/uL (4.20-5.40); White Blood Cell (WBC) Count 5.7 thou/uL (4.8-10.8)
[2021-08-17] MEDS ORDERED: Magnesium Oxide 400 MG TAB PO SCH (09:00)
[2021-08-17] MEDS ORDERED: Potassium Chloride 20 MEQ TAB PO SCH (09:00)
[2021-08-17] MEDS: Labetalol HCl 100 MG TAB PO SCH ×2 (09:33→20:21)
[2021-08-17] MEDS: Zolpidem Tartrate 5 MG TAB PO PRN (22:59)
[2021-08-18] MEDS: Morphine 4 MG/ML VIAL SLOW IVP PRN ×2 (00:19→05:29)
[2021-08-18] MEDS: Lactated Ringer's 1,000 ML IV SCH ×2 (02:27→13:21)
[2021-08-18] MEDS: HYDROcodone/Acetaminophen 5/325 mg Tablet PO PRN ×3 (03:06→12:56)
[2021-08-18 08:27] VITALS: BP 120/86; TEMP 98.2
[2021-08-18] MEDS: Labetalol HCl 100 MG TAB PO SCH (09:02)
[2021-08-18] MEDS: Fenofibrate Nanocrystallized 145 MG TAB PO SCH (09:02)
[2021-08-18] MEDS: Multivitamin W/ Minerals 1 TAB PO SCH (09:02)
[2021-08-18] MEDS: Folic Acid 1 MG TAB PO SCH (09:03)
[2021-08-18] MEDS: Lantus 1000 UNITS/10 ML VIAL SC SCH (09:03)
[2021-08-18] MEDS: Thiamine 100 MG TAB PO SCH (09:03)
[2021-08-18] MEDS: Enoxaparin Sodium 40 MG/0.4 ML SYRINGE SC SCH (09:03)
[2021-08-18] MEDS: Pantoprazole 40 MG VIAL IVP SCH (09:05)
== END 2021-08-18 17:38 | disposition home or self-care (01) | DRG 438 ==
LOC: ERS 18:56 → T4-A 08-15 01:20 → OBSVTOIN 08-15 11:30
PROVIDERS: ADMIT Internal Medicine; ATTEND Internal Medicine
DX: K85.90 Acute pancreatitis without necrosis or infection, unspecified (principal); E11.10 Type 2 diabetes mellitus with ketoacidosis without coma; E87.1 Hypo-osmolality and hyponatremia; Z20.822 Contact with and (suspected) exposure to COVID-19; E78.1 Pure hyperglyceridemia; F10.10 Alcohol abuse, uncomplicated; D64.9 Anemia, unspecified; I10 Essential (primary) hypertension; K76.0 Fatty (change of) liver, not elsewhere classified; E66.9 Obesity, unspecified; F25.0 Schizoaffective disorder, bipolar type; E87.6 Hypokalemia; E83.42 Hypomagnesemia; B18.2 Chronic viral hepatitis C; Z79.84 Long term (current) use of oral hypoglycemic drugs; Z79.899 Other long term (current) drug therapy; Z68.31 Body mass index [BMI] 31.0-31.9, adult
CPT/HCPCS: 36415; 36416; 74177; 74183; 80048; 80053; 81003; 82010; 82805; 83690; 83735; 83930; 83935; 84100; 84478; 84703; 85007; 85025; 85027; 86140; 96372; 96374; 96375; 96376; A9579; C9113; G0378; J0500; J1650; J1885; J2270; J2405; J3475; J7050; J7120; Q0162; Q9967; U0003; U0005

== ENCOUNTER 2022-03-11 00:08 | Inpatient (IN) | payer SELFPAY ==
[2022-03-11 01:35] LABS: #Basophils 0.1 thou/uL (0.0-0.2); #Eosinphils 0.2 thou/uL (0.0-0.7); #Lymphocytes 2.7 thou/uL (1.20-3.40); #Monocytes 0.5 thou/uL (0.11-0.59); %Basophils 0.7 % (0.0-1.0); %Eosinophils 2.7 % (0.0-10.0); %Lymphocytes 35.9 % (21.0-51.0); %Monocytes 6.3 % (0.0-10.0); %Neutrophils 54.4 % (42.0-75.0); Hemoglobin 13.1 g/dL (12.0-16.0); Mean Corpuscular HGB CONC 35.7 g/dL (32.0-36.0); Mean Corpuscular Hemoglobin 30.7 pg (27.0-31.0); Mean Platelet Volume 9.3 fL (7.4-10.4); Platelet Count 324 thou/uL (130-400); RBC Distribution Width 14.8 % (11.5-14.5); Red Blood Cell (RBC) Count 4.25 mill/uL (4.20-5.40); White Blood Cell (WBC) Count 7.4 thou/uL (4.8-10.8)
[2022-03-11 01:37] LABS: BHCG - Serum Negative (NEGATIVE); Pregs Control Background? CLEAR/WHITE (CLR/WHITE); Pregs Control Bar Appear? YES (CONTROL BAR)
[2022-03-11 01:38] LABS: ALT (SGPT) 21 U/L (8-55); AST (SGOT) 39 U/L (5-34); Albumin 4.1 g/dL (3.5-5.0); Alkaline Phosphatase 66 U/L (40-110); Anion Gap 17 mmol/L (10-20); BUN (Urea Nitrogen) 7 mg/dL (7.0-18.7); Bilirubin, Total 0.4 mg/dL (0.2-1.2); Calc. Creatinine Clearance 0 mL/min (70-130); Calcium 9.3 mg/dL (7.8-10.44); Carbon Dioxide 18 mmol/L (22-29); Chloride 103 mmol/L (98-107); Estimated GFR 112; Globulin 3.3 g/dL (2.4-3.5); Glucose 137 mg/dL (70-105); Lipase 389 U/L (8-78); Potassium 3.9 mmol/L (3.5-5.1); Protein, Total 7.4 g/dL (6.0-8.3); Sodium 134 mmol/L (136-145)
[2022-03-11 01:40] LABS: Bacteria/HPF None Seen HPF (None Seen); Bilirubin Negative (Negative); Blood, Urine Trace (Negative); Clarity Clear (Clear); Glucose, Urine (Dipstick) Normal (Negative); Ketone, Urine Negative (Negative); Leukocyte Negative Leu/uL (Negative); Nitrite Negative (Negative); Protein, Urine (Dipstick) Negative (Neg-Trace); RBC/HPF 0-3 HPF (0-3); Specific Gravity, Urine 1.008 (1.002-1.036); Squamous Epithelial 0-3 HPF (0-3); Urobilinogen Normal mg/dL (Less than 2); WBC/HPF 0-3 HPF (0-3); pH, Urine 5.5 (5.0-9.0)
[2022-03-11 01:41] LABS: Pregnancy Test - Urine (BHCG) Negative (Negative); Pregu Control Background? CLEAR/WHITE (CLR/WHITE); Pregu Control Bar Appear? YES (CONTROL BAR); Specific Gravity 1.008 (1.002-1.036)
[2022-03-11] MEDS ORDERED: Morphine 4 MG/ML VIAL ONE ×2 (02:33→04:12)
[2022-03-11] MEDS ORDERED: Ondansetron PF 4 MG/2 ML Vial ONE (02:33)
[2022-03-11 04:44] LABS: Magnesium 1.6 mg/dL (1.6-2.6)
[2022-03-11 07:26] VITALS: BMI 30.2
[2022-03-11] MEDS: Sodium Chloride 0.9% 1,000 ML IV SCH ×4 (07:28→22:36)
[2022-03-11] MEDS ORDERED: Acetaminophen 325 MG TAB PO PRN (07:40)
[2022-03-11] MEDS ORDERED: Ondansetron ODT 4 MG TAB PO PRN (07:40)
[2022-03-11] MEDS ORDERED: Ondansetron PF 4 MG/2 ML Vial IVP PRN (07:40)
[2022-03-11] MEDS: Morphine 4 MG/ML VIAL SLOW IVP PRN ×2 (08:13→12:19)
[2022-03-11] MEDS ORDERED: HumaLOG 300 UNITS/3 ML VIAL SC PRN ×2 (08:21)
[2022-03-11] MEDS ORDERED: Dextrose 5% in Water 1,000 ML IV PRN (08:21)
[2022-03-11] MEDS ORDERED: Dextrose 50% Abboject 50 ML SYRINGE SLOW IVP PRN (08:21)
[2022-03-11] MEDS ORDERED: Labetalol HCl 100 MG/20 ML VIAL SLOW IVP PRN (08:26)
[2022-03-11] MEDS ORDERED: Lorazepam 2 MG/ML VIAL IM PRN (08:27)
[2022-03-11] MEDS ORDERED: Lorazepam 1 MG TAB PO PRN (08:27)
[2022-03-11] MEDS ORDERED: Electrolyte Replacement Protocol 1 EACH FS SCH (08:30)
[2022-03-11 08:45] LABS: Phosphorus 2.4 mg/dL (2.3-4.7)
[2022-03-11] MEDS: Nicotine 14 MG PATCH TD SCH (09:58)
[2022-03-11] MEDS: Pantoprazole 40 MG VIAL IVP SCH ×2 (09:58→20:22)
[2022-03-11] MEDS ORDERED: Midazolam HCl 2 mg/2 ml Vial IM PRN (09:59)
[2022-03-11] MEDS ORDERED: Magnesium 2 GM/50 ML(in water) 2 GM in Premix Bag 1 BAG IVPB SCH (10:00)
[2022-03-11] MEDS: Folic Acid 1 MG TAB PO SCH (10:14)
[2022-03-11] MEDS: Multivitamin W/ Minerals 1 TAB PO SCH (10:14)
[2022-03-11 10:58] LABS: SARS-CoV-2 NAA Rapid Test Not Detected (NotDetected)
[2022-03-11] MEDS: Enoxaparin Sodium 40 MG/0.4 ML SYRINGE SC SCH (11:43)
[2022-03-11] MEDS: Gemfibrozil 600 MG TAB PO SCH (16:54)
[2022-03-11] MEDS: Ketorolac Tromethamine 30 MG/ML VIAL IVP PRN ×2 (17:01→22:36)
[2022-03-12] MEDS: Sodium Chloride 0.9% 1,000 ML IV SCH ×5 (03:20→21:15)
[2022-03-12] MEDS: Ketorolac Tromethamine 30 MG/ML VIAL IVP PRN (05:30)
[2022-03-12 06:35] LABS: #Basophils 0.1 thou/uL (0.0-0.2); #Eosinphils 0.2 thou/uL (0.0-0.7); #Lymphocytes 1.9 thou/uL (1.20-3.40); #Monocytes 0.5 thou/uL (0.11-0.59); #Neutrophils 2.6 thou/uL (1.40-6.50); %Basophils 1.3 % (0.0-1.0); %Eosinophils 3.9 % (0.0-10.0); %Lymphocytes 36.2 % (21.0-51.0); %Monocytes 8.6 % (0.0-10.0); Hemoglobin 10.2 g/dL (12.0-16.0); Mean Corpuscular HGB CONC 34.3 g/dL (32.0-36.0); Mean Corpuscular Hemoglobin 30.8 pg (27.0-31.0); Mean Corpuscular Volume 89.6 fL (78.0-98.0); Mean Platelet Volume 8.9 fL (7.4-10.4); Platelet Count 215 thou/uL (130-400); Red Blood Cell (RBC) Count 3.33 mill/uL (4.20-5.40); White Blood Cell (WBC) Count 5.3 thou/uL (4.8-10.8)
[2022-03-12 07:12] LABS: ALT (SGPT) 14 U/L (8-55); AST (SGOT) 29 U/L (5-34); Albumin 3.1 g/dL (3.5-5.0); Alkaline Phosphatase 48 U/L (40-110); Anion Gap 13 mmol/L (10-20); BUN (Urea Nitrogen) 5 mg/dL (7.0-18.7); Bilirubin, Total 0.3 mg/dL (0.2-1.2); Calc. Creatinine Clearance 157 mL/min (70-130); Calcium 7.8 mg/dL (7.8-10.44); Carbon Dioxide 17 mmol/L (22-29); Chloride 113 mmol/L (98-107); Estimated GFR 116; Globulin 2.6 g/dL (2.4-3.5); Glucose 96 mg/dL (70-105); Potassium 3.6 mmol/L (3.5-5.1); Protein, Total 5.7 g/dL (6.0-8.3); Sodium 139 mmol/L (136-145)
[2022-03-12] MEDS: Gemfibrozil 600 MG TAB PO SCH ×2 (08:21→17:50)
[2022-03-12] MEDS: Folic Acid 1 MG TAB PO SCH ×2 (08:23→09:58)
[2022-03-12] MEDS: Pantoprazole 40 MG VIAL IVP SCH ×2 (08:23→20:00)
[2022-03-12] MEDS: Nicotine 14 MG PATCH TD SCH (08:23)
[2022-03-12] MEDS: Multivitamin W/ Minerals 1 TAB PO SCH ×2 (08:23→09:58)
[2022-03-12] MEDS: Enoxaparin Sodium 40 MG/0.4 ML SYRINGE SC SCH (08:23)
[2022-03-12] MEDS: Morphine 4 MG/ML VIAL SLOW IVP PRN ×4 (09:56→22:13)
[2022-03-13] MEDS: Sodium Chloride 0.9% 1,000 ML IV SCH ×4 (00:18→20:21)
[2022-03-13] MEDS: Morphine 4 MG/ML VIAL SLOW IVP PRN ×5 (02:05→20:18)
[2022-03-13] MEDS: Gemfibrozil 600 MG TAB PO SCH ×2 (06:09→19:24)
[2022-03-13] MEDS ORDERED: Lorazepam 1 MG TAB PO PRN (08:27)
[2022-03-13 08:58] LABS: #Basophils 0.1 thou/uL (0.0-0.2); #Eosinphils 0.1 thou/uL (0.0-0.7); #Lymphocytes 2.1 thou/uL (1.20-3.40); #Monocytes 0.4 thou/uL (0.11-0.59); #Neutrophils 3.9 thou/uL (1.40-6.50); %Basophils 0.9 % (0.0-1.0); %Eosinophils 2.1 % (0.0-10.0); %Lymphocytes 31.5 % (21.0-51.0); %Monocytes 6.6 % (0.0-10.0); %Neutrophils 58.9 % (42.0-75.0); Hemoglobin 10.5 g/dL (12.0-16.0); Mean Corpuscular Hemoglobin 30.4 pg (27.0-31.0); Mean Corpuscular Volume 89.5 fL (78.0-98.0); Platelet Count 221 thou/uL (130-400); RBC Distribution Width 15.4 % (11.5-14.5); Red Blood Cell (RBC) Count 3.45 mill/uL (4.20-5.40); White Blood Cell (WBC) Count 6.6 thou/uL (4.8-10.8)
[2022-03-13 09:02] LABS: ALT (SGPT) 16 U/L (8-55); AST (SGOT) 20 U/L (5-34); Albumin 3.5 g/dL (3.5-5.0); Alkaline Phosphatase 56 U/L (40-110); Anion Gap 11 mmol/L (10-20); BUN (Urea Nitrogen) Less than 4 mg/dL (7.0-18.7); Bilirubin, Total 0.3 mg/dL (0.2-1.2); Calc. Creatinine Clearance 159 mL/min (70-130); Calcium 8.3 mg/dL (7.8-10.44); Carbon Dioxide 21 mmol/L (22-29); Chloride 111 mmol/L (98-107); Estimated GFR 116; Globulin 2.7 g/dL (2.4-3.5); Glucose 112 mg/dL (70-105); Potassium 3.7 mmol/L (3.5-5.1); Protein, Total 6.2 g/dL (6.0-8.3); Sodium 139 mmol/L (136-145)
[2022-03-13] MEDS: Folic Acid 1 MG TAB PO SCH (09:11)
[2022-03-13] MEDS: Enoxaparin Sodium 40 MG/0.4 ML SYRINGE SC SCH (09:11)
[2022-03-13] MEDS: Multivitamin W/ Minerals 1 TAB PO SCH (09:11)
[2022-03-13] MEDS: Pantoprazole 40 MG VIAL IVP SCH (09:11)
[2022-03-13] MEDS: Nicotine 14 MG PATCH TD SCH (10:27)
[2022-03-13] MEDS: Bisacodyl 10 MG SUPP PR PRN (16:50)
[2022-03-13] MEDS: Senokot S 8.6-50 MG TAB PO SCH (20:17)
[2022-03-14] MEDS: Morphine 4 MG/ML VIAL SLOW IVP PRN ×3 (01:11→09:52)
[2022-03-14] MEDS: Bisacodyl 10 MG SUPP PR PRN (05:37)
[2022-03-14] MEDS: Sodium Chloride 0.9% 1,000 ML IV SCH (05:37)
[2022-03-14] MEDS: Gemfibrozil 600 MG TAB PO SCH (06:00)
[2022-03-14] MEDS: Enoxaparin Sodium 40 MG/0.4 ML SYRINGE SC SCH (07:50)
[2022-03-14] MEDS: Senokot S 8.6-50 MG TAB PO SCH (07:51)
[2022-03-14] MEDS: Folic Acid 1 MG TAB PO SCH (07:51)
[2022-03-14] MEDS: Multivitamin W/ Minerals 1 TAB PO SCH (07:51)
[2022-03-14] MEDS: Nicotine 14 MG PATCH TD SCH (07:52)
[2022-03-14 08:21] VITALS: BP 127/84; TEMP 98.1
[2022-03-14] MEDS ORDERED: Polyethylene Glycol 3350 17 GM Packet PO SCH (09:00)
== END 2022-03-14 12:09 | disposition home or self-care (01) | DRG 439 ==
LOC: ERS 00:08 → T4-B 03:21 → OBSVTOIN 03-12 09:13
PROVIDERS: ADMIT Internal Medicine; ATTEND Internal Medicine
DX: K85.20 Alcohol induced acute pancreatitis without necrosis or infection (principal); E87.1 Hypo-osmolality and hyponatremia; E87.2 Acidosis; Z20.822 Contact with and (suspected) exposure to COVID-19; I10 Essential (primary) hypertension; E11.9 Type 2 diabetes mellitus without complications; B18.2 Chronic viral hepatitis C; F17.210 Nicotine dependence, cigarettes, uncomplicated; F43.10 Post-traumatic stress disorder, unspecified; E78.1 Pure hyperglyceridemia; F41.9 Anxiety disorder, unspecified; F32.A Depression, unspecified; F20.9 Schizophrenia, unspecified; F10.20 Alcohol dependence, uncomplicated; Z79.84 Long term (current) use of oral hypoglycemic drugs; Z79.899 Other long term (current) drug therapy
CPT/HCPCS: 36415; 36416; 80053; 81003; 81015; 81025; 83690; 83735; 84100; 84478; 84484; 84703; 85025; 93005; 96361; 96365; 96372; 96374; 96375; 96376; C9113; G0378; J1650; J1885; J2270; J2405; J3411; J3475; J7050; U0002

== ENCOUNTER 2022-10-19 02:49 | Inpatient (IN) | payer SELFPAY ==
[2022-10-19] MEDS ORDERED: Ondansetron PF 4 MG/2 ML Vial ONE (03:07)
[2022-10-19 03:33] LABS: Actual Bicarbonate (HCO3v) 22 mEq/L (22-28); Base Excess -2.3 mEq/L (-2.0 to +3.0); Calcium, Ionized (venous) 1.09 mmol/L (1.16-1.32); Chloride (VBG) 102 mmol/L (98-106); Hemoglobin (Hb) 13.9 g/dL (11.7-15.5); Potassium (VBG) 3.16 mmol/L (3.70-5.30); Sodium 137.8 mmol/L (133-146)
[2022-10-19 03:48] LABS: #Basophils 0.1 thou/uL (0.0-0.2); #Eosinphils 0.2 thou/uL (0.0-0.7); #Lymphocytes 2.8 thou/uL (1.20-3.40); #Monocytes 0.7 thou/uL (0.11-0.59); #Neutrophils 2.7 thou/uL (1.40-6.50); %Basophils 0.9 % (0.0-1.0); %Eosinophils 3.6 % (0.0-10.0); %Lymphocytes 43.4 % (21.0-51.0); %Monocytes 10.5 % (0.0-10.0); %Neutrophils 41.7 % (42.0-75.0); Hemoglobin 13.6 g/dL (12.0-16.0); Mean Corpuscular HGB CONC 36.6 g/dL (32.0-36.0); Mean Corpuscular Hemoglobin 32.3 pg (27.0-31.0); Mean Corpuscular Volume 88.2 fl (78.0-98.0); Mean Platelet Volume 9.5 fL (7.4-10.4); Platelet Count 227 10x3/uL (130-400); RBC Distribution Width 15.3 % (11.5-14.5); Red Blood Cell (RBC) Count 4.22 mill/uL (4.20-5.40); White Blood Cell (WBC) Count 6.4 10x3/uL (4.8-10.8)
[2022-10-19 04:14] LABS: BHCG - Serum Negative (NEGATIVE); Pregs Control Background? CLEAR/WHITE (CLR/WHITE); Pregs Control Bar Appear? YES (CONTROL BAR)
[2022-10-19 04:20] LABS: ALT (SGPT) 16 U/L (8-55); AST (SGOT) 20 U/L (5-34); Albumin 4.1 g/dL (3.5-5.0); Alkaline Phosphatase 70 U/L (40-110); Anion Gap 17 mmol/L (10-20); BUN (Urea Nitrogen) 10 mg/dL (7.0-18.7); Bilirubin, Total 0.3 mg/dL (0.2-1.2); Calc. Creatinine Clearance 0 mL/min (70-130); Calcium 8.8 mg/dL (7.8-10.44); Carbon Dioxide 20 mmol/L (22-29); Chloride 103 mmol/L (98-107); Estimated GFR 75; Glucose 146 mg/dL (70-105); Lipase 76 U/L (8-78); Potassium 3.1 mmol/L (3.5-5.1); Protein, Total 7.1 g/dL (6.0-8.3); Sodium 137 mmol/L (136-145)
[2022-10-19] MEDS ORDERED: Morphine 4 MG/ML VIAL ONE ×3 (04:25→11:47)
[2022-10-19] MEDS ORDERED: diphenhydrAMINE 50 MG/ML VIAL ONE (05:36)
[2022-10-19] MEDS ORDERED: Famotidine/PF 20 mg/2ml Vial ONE (05:36)
[2022-10-19] MEDS ORDERED: Ketorolac Tromethamine 30 MG/ML VIAL ONE (06:28)
[2022-10-19] MEDS ORDERED: Potassium Chloride 20 MEQ TAB ONE (06:28)
[2022-10-19] MEDS ORDERED: Potassium Bicarbonate/Cit Ac 20 MEQ TAB PO SCH (08:45)
[2022-10-19] MEDS ORDERED: Ondansetron ODT 4 MG TAB PO PRN (09:02)
[2022-10-19] MEDS ORDERED: Lorazepam 1 MG TAB PO PRN (09:02)
[2022-10-19] MEDS ORDERED: Lorazepam 2 MG/ML VIAL IM PRN (09:02)
[2022-10-19] MEDS ORDERED: Electrolyte Replacement Protocol 1 EACH FS SCH (09:15)
[2022-10-19 09:22] LABS: Cardiac Risk 3.1 (Less than 4.5); Cholesterol 163 mg/dl (< 200 Desired); HDL Cholesterol 53 mg/dL (>60 Neg Risk); LDL Cholesterol, Calculated 58 mg/dL; Magnesium 1.4 mg/dL (1.6-2.6); Triglycerides 258 mg/dL (Less than 150)
[2022-10-19] MEDS ORDERED: Ondansetron PF 4 MG/2 ML Vial IVP PRN (09:22)
[2022-10-19 09:36] LABS: Phosphorus 2.9 mg/dL (2.3-4.7)
[2022-10-19] MEDS ORDERED: Lorazepam 1 MG TAB ONE (09:59)
[2022-10-19] MEDS: Sodium Chloride 0.9% 1,000 ML IV SCH ×4 (10:12→21:37)
[2022-10-19] MEDS: Lorazepam 1 MG TAB PO SCH ×3 (10:12→21:35)
[2022-10-19] MEDS ORDERED: Magnesium Sulfate In Water 4 GM in Premix Bag 1 BAG IVPB SCH (10:15)
[2022-10-19] MEDS ORDERED: Iopamidol-370 76% 500 ML MDV (1 ML CHARGE) ONE (10:24)
[2022-10-19] MEDS: Thiamine HCl 200 MG/2 ML VIAL SLOW IVP SCH (14:04)
[2022-10-19] MEDS: Morphine 4 MG/ML VIAL SLOW IVP PRN ×3 (14:15→21:47)
[2022-10-19 14:26] VITALS: BMI 28.1
[2022-10-19] MEDS: Ketorolac Tromethamine 30 MG/ML VIAL IVP PRN (21:36)
[2022-10-20] MEDS: Sodium Chloride 0.9% 1,000 ML IV SCH ×6 (01:30→20:21)
[2022-10-20] MEDS: Morphine 4 MG/ML VIAL SLOW IVP PRN ×6 (01:31→21:53)
[2022-10-20] MEDS: Lorazepam 1 MG TAB PO SCH ×4 (03:59→20:21)
[2022-10-20] MEDS: Ketorolac Tromethamine 30 MG/ML VIAL IVP PRN ×2 (05:26→15:35)
[2022-10-20 06:18] LABS: #Eosinphils 0.2 thou/uL (0.0-0.7); #Lymphocytes 2.1 thou/uL (1.20-3.40); #Monocytes 0.6 thou/uL (0.11-0.59); #Neutrophils 2.7 thou/uL (1.40-6.50); %Basophils 0.8 % (0.0-1.0); %Eosinophils 3.4 % (0.0-10.0); %Lymphocytes 38.1 % (21.0-51.0); %Neutrophils 47.8 % (42.0-75.0); Hemoglobin 10.7 g/dL (12.0-16.0); Mean Corpuscular HGB CONC 34.6 g/dL (32.0-36.0); Mean Corpuscular Hemoglobin 31.6 pg (27.0-31.0); Mean Corpuscular Volume 91.4 fl (78.0-98.0); Platelet Count 178 10x3/uL (130-400); Red Blood Cell (RBC) Count 3.38 mill/uL (4.20-5.40); White Blood Cell (WBC) Count 5.6 10x3/uL (4.8-10.8)
[2022-10-20 06:46] LABS: ALT (SGPT) 10 U/L (8-55); AST (SGOT) 10 U/L (5-34); Albumin 3.1 g/dL (3.5-5.0); Alkaline Phosphatase 49 U/L (40-110); Anion Gap 9 mmol/L (10-20); BUN (Urea Nitrogen) 4 mg/dL (7.0-18.7); Bilirubin, Total 0.3 mg/dL (0.2-1.2); Calc. Creatinine Clearance 154 mL/min (70-130); Calcium 7.5 mg/dL (7.8-10.44); Carbon Dioxide 20 mmol/L (22-29); Chloride 111 mmol/L (98-107); Estimated GFR 116; Globulin 2.4 g/dL (2.4-3.5); Glucose 104 mg/dL (70-105); Potassium 3.8 mmol/L (3.5-5.1); Protein, Total 5.5 g/dL (6.0-8.3); Sodium 136 mmol/L (136-145)
[2022-10-20] MEDS: Multivit, Therapeutic 1 TAB PO SCH (08:27)
[2022-10-20] MEDS ORDERED: Folic Acid 1 MG TAB PO SCH (09:00)
[2022-10-20] MEDS ORDERED: Lorazepam 1 MG TAB PO PRN (09:02)
[2022-10-20] MEDS: Thiamine HCl 200 MG/2 ML VIAL SLOW IVP SCH (09:42)
[2022-10-20] MEDS: Acetaminophen 325 MG TAB PO PRN ×2 (11:29→20:21)
[2022-10-20] MEDS ORDERED: Gemfibrozil 600 MG TAB PO SCH (16:30)
[2022-10-20] MEDS: Atorvastatin Calcium 40 MG TAB PO SCH (20:21)
[2022-10-21] MEDS ORDERED: diphenhydrAMINE 25 MG CAP ONE (01:54)
[2022-10-21] MEDS: Sodium Chloride 0.9% 1,000 ML IV SCH ×5 (01:55→18:22)
[2022-10-21] MEDS: Morphine 4 MG/ML VIAL SLOW IVP PRN ×5 (02:00→20:30)
[2022-10-21] MEDS ORDERED: diphenhydrAMINE 25 MG CAP PO SCH (02:30)
[2022-10-21] MEDS: Acetaminophen 325 MG TAB PO PRN (03:30)
[2022-10-21] MEDS: Lorazepam 1 MG TAB PO SCH (03:30)
[2022-10-21 07:11] LABS: #Eosinphils 0.1 thou/uL (0.0-0.7); #Lymphocytes 1.8 thou/uL (1.20-3.40); #Monocytes 0.5 thou/uL (0.11-0.59); #Neutrophils 2.9 thou/uL (1.40-6.50); %Basophils 0.7 % (0.0-1.0); %Eosinophils 2.7 % (0.0-10.0); %Lymphocytes 33.8 % (21.0-51.0); %Monocytes 8.4 % (0.0-10.0); %Neutrophils 54.4 % (42.0-75.0); Hemoglobin 9.9 g/dL (12.0-16.0); Mean Corpuscular HGB CONC 34.3 g/dL (32.0-36.0); Mean Corpuscular Volume 90.3 fl (78.0-98.0); Mean Platelet Volume 9.4 fL (7.4-10.4); Platelet Count 150 10x3/uL (130-400); RBC Distribution Width 14.7 % (11.5-14.5); White Blood Cell (WBC) Count 5.4 10x3/uL (4.8-10.8)
[2022-10-21 07:17] LABS: ALT (SGPT) 11 U/L (8-55); AST (SGOT) 20 U/L (5-34); Albumin 3.1 g/dL (3.5-5.0); Alkaline Phosphatase 53 U/L (40-110); Anion Gap 9 mmol/L (10-20); BUN (Urea Nitrogen) 5 mg/dL (7.0-18.7); Bilirubin, Total 0.2 mg/dL (0.2-1.2); Calc. Creatinine Clearance 149 mL/min (70-130); Calcium 7.8 mg/dL (7.8-10.44); Carbon Dioxide 21 mmol/L (22-29); Chloride 111 mmol/L (98-107); Estimated GFR 115; Globulin 2.3 g/dL (2.4-3.5); Glucose 107 mg/dL (70-105); Potassium 3.9 mmol/L (3.5-5.1); Protein, Total 5.4 g/dL (6.0-8.3); Sodium 137 mmol/L (136-145)
[2022-10-21] MEDS ORDERED: Ketorolac Tromethamine 30 MG/ML VIAL IVP SCH ×2 (08:30→08:45)
[2022-10-21] MEDS: Fenofibrate 48 MG TAB PO SCH (08:35)
[2022-10-21] MEDS: Multivit, Therapeutic 1 TAB PO SCH (08:35)
[2022-10-21] MEDS: Folic Acid 1 MG TAB PO SCH (08:35)
[2022-10-21] MEDS: Lorazepam 0.5 MG TAB PO SCH ×3 (08:35→20:33)
[2022-10-21] MEDS: Thiamine 100 MG TAB PO SCH (08:36)
[2022-10-21] MEDS ORDERED: Lorazepam 1 MG TAB PO PRN (09:02)
[2022-10-21] MEDS ORDERED: Polyethylene Glycol 3350 17 GM Packet PO SCH (12:30)
[2022-10-21] MEDS: Senokot S 8.6-50 MG TAB PO SCH (20:33)
[2022-10-21] MEDS: Atorvastatin Calcium 40 MG TAB PO SCH (20:34)
[2022-10-22] MEDS: Morphine 4 MG/ML VIAL SLOW IVP PRN ×3 (00:35→09:01)
[2022-10-22] MEDS: Sodium Chloride 0.9% 1,000 ML IV SCH (00:40)
[2022-10-22] MEDS: Lorazepam 0.5 MG TAB PO SCH (03:39)
[2022-10-22 08:03] VITALS: BP 135/89; TEMP 97.6
[2022-10-22] MEDS ORDERED: Polyethylene Glycol 3350 17 GM Packet PO SCH (09:00)
[2022-10-22] MEDS ORDERED: Thiamine 100 MG TAB PO SCH (09:00)
[2022-10-22] MEDS ORDERED: Lorazepam 0.5 MG TAB PO PRN (09:02)
[2022-10-22] MEDS: Folic Acid 1 MG TAB PO SCH (09:03)
[2022-10-22] MEDS: Multivit, Therapeutic 1 TAB PO SCH (09:03)
[2022-10-22] MEDS: Senokot S 8.6-50 MG TAB PO SCH (09:03)
[2022-10-22] MEDS: Thiamine 100 MG TAB PO SCH (09:03)
[2022-10-22] MEDS: Fenofibrate 48 MG TAB PO SCH (09:04)
== END 2022-10-22 10:11 | disposition home or self-care (01) | DRG 440 ==
LOC: ERS 02:49 → ERHOLD 08:55 → OBSVTOIN 09:07 → T4-B 14:00
PROVIDERS: ADMIT Family Medicine; ATTEND Internal Medicine
DX: K85.20 Alcohol induced acute pancreatitis without necrosis or infection (principal); K86.0 Alcohol-induced chronic pancreatitis; E78.1 Pure hyperglyceridemia; E11.9 Type 2 diabetes mellitus without complications; I10 Essential (primary) hypertension; E78.00 Pure hypercholesterolemia, unspecified; F43.10 Post-traumatic stress disorder, unspecified; F20.9 Schizophrenia, unspecified; F41.9 Anxiety disorder, unspecified; F17.210 Nicotine dependence, cigarettes, uncomplicated; F10.20 Alcohol dependence, uncomplicated; E87.6 Hypokalemia; Z91.041 Radiographic dye allergy status; Z79.899 Other long term (current) drug therapy
CPT/HCPCS: 36415; 36416; 74177; 80053; 80061; 82010; 82805; 83690; 83735; 84100; 84703; 85025; 93005; 96374; 96375; 96376; G0378; J1200; J1650; J1885; J2270; J2405; J3411; J3475; J7050; Q9967; S0028

== ENCOUNTER 2023-01-12 04:34 | Emergency (ER) | payer SELFPAY ==
[2023-01-12 05:14] LABS: #Basophils 0.1 thou/uL (0.0-0.2); #Eosinphils 0.1 thou/uL (0.0-0.7); #Monocytes 0.5 thou/uL (0.11-0.59); #Neutrophils 5.2 thou/uL (1.40-6.50); %Basophils 0.8 % (0.0-1.0); %Eosinophils 1.4 % (0.0-10.0); %Lymphocytes 24.4 % (21.0-51.0); %Monocytes 5.9 % (0.0-10.0); %Neutrophils 67.4 % (42.0-75.0); Hemoglobin 13.4 g/dL (12.0-16.0); Mean Corpuscular HGB CONC 35.2 g/dL (32.0-36.0); Mean Corpuscular Hemoglobin 30.1 pg (27.0-31.0); Mean Corpuscular Volume 85.6 fl (78.0-98.0); Mean Platelet Volume 11.5 fL (7.4-10.4); Platelet Count 337 10x3/uL (130-400); RBC Distribution Width 12.6 % (11.5-14.5); Red Blood Cell (RBC) Count 4.45 mill/uL (4.20-5.40); White Blood Cell (WBC) Count 7.8 10x3/uL (4.8-10.8)
[2023-01-12 05:22] LABS: Bacteria/HPF None Seen HPF (None Seen); Bilirubin Negative (Negative); Blood, Urine Trace (Negative); CAUTI Indications for Culture Dysuria,urgency,freq; Clarity Clear (Clear); Glucose, Urine (Dipstick) 300 mg/dL (Negative); Ketone, Urine Trace mg/dL (Negative); Leukocyte Negative Leu/uL (Negative); Nitrite Negative (Negative); Protein, Urine (Dipstick) 30 mg/dL (Neg-Trace); RBC/HPF 0-3 HPF (0-3); Specific Gravity, Urine 1.022 (1.002-1.036); Squamous Epithelial 0-3 HPF (0-3); Urobilinogen Normal mg/dL (Less than 2); WBC/HPF 0-3 HPF (0-3)
[2023-01-12 05:30] LABS: Pregnancy Test - Urine (BHCG) Negative (Negative); Pregu Control Background? CLEAR/WHITE (CLR/WHITE); Pregu Control Bar Appear? YES (CONTROL BAR); Urine Culture Reflex No No
[2023-01-12 05:31] LABS: Specific Gravity 1.022 (1.002-1.036)
[2023-01-12 05:38] LABS: ALT (SGPT) 86 U/L (8-55); AST (SGOT) 110 U/L (5-34); Albumin 4.2 g/dL (3.5-5.0); Alkaline Phosphatase 107 U/L (40-110); Anion Gap 18 mmol/L (10-20); BUN (Urea Nitrogen) 5 mg/dL (7.0-18.7); Bilirubin, Total 0.9 mg/dL (0.2-1.2); Calc. Creatinine Clearance 0 mL/min (70-130); Carbon Dioxide 19 mmol/L (22-29); Chloride 102 mmol/L (98-107); Estimated GFR 85; Globulin 3.2 g/dL (2.4-3.5); Glucose 315 mg/dL (70-105); Lipase 106 U/L (8-78); Potassium 3.2 mmol/L (3.5-5.1); Protein, Total 7.4 g/dL (6.0-8.3); Sodium 136 mmol/L (136-145)
[2023-01-12] MEDS ORDERED: Ketorolac Tromethamine 30 MG/ML VIAL ONE (06:13)
[2023-01-12] MEDS ORDERED: Ondansetron ODT 4 MG TAB ONE (06:13)
== END 2023-01-12 08:11 | disposition home or self-care (01) ==
LOC: ERS 04:34
DX: R10.9 Unspecified abdominal pain (principal); E11.9 Type 2 diabetes mellitus without complications; E78.5 Hyperlipidemia, unspecified; F17.210 Nicotine dependence, cigarettes, uncomplicated
CPT/HCPCS: 36415; 76705; 80053; 81001; 81025; 83690; 85025; 94760; 96372; J1885; Q0162

== ENCOUNTER 2023-03-07 15:49 | Emergency (ER) | payer BC, SELFPAY ==
[2023-03-07 16:43] LABS: #Basophils 0.1 thou/uL (0.0-0.2); #Eosinphils 0.3 thou/uL (0.0-0.7); #Monocytes 0.6 thou/uL (0.11-0.59); #Neutrophils 5.9 thou/uL (1.40-6.50); %Basophils 0.9 % (0.0-1.0); %Eosinophils 2.8 % (0.0-10.0); %Lymphocytes 25.9 % (21.0-51.0); Hematocrit 41.2 % (36.0-47.0); Hemoglobin 14.7 g/dL (12.0-16.0); Mean Corpuscular HGB CONC 35.7 g/dL (32.0-36.0); Mean Corpuscular Hemoglobin 30.1 pg (27.0-31.0); Mean Corpuscular Volume 84.4 fl (78.0-98.0); Mean Platelet Volume 11.9 fL (7.4-10.4); Platelet Count 301 10x3/uL (130-400); RBC Distribution Width 12.7 % (11.5-14.5); Red Blood Cell (RBC) Count 4.88 mill/uL (4.20-5.40); White Blood Cell (WBC) Count 9.2 10x3/uL (4.8-10.8)
[2023-03-07 17:12] LABS: ALT (SGPT) 89 U/L (8-55); AST (SGOT) 213 U/L (5-34); Albumin 4.2 g/dL (3.5-5.0); Alkaline Phosphatase 101 U/L (40-110); Anion Gap 21 mmol/L (10-20); BUN (Urea Nitrogen) Less than 4 mg/dL (7.0-18.7); Bilirubin, Total 0.6 mg/dL (0.2-1.2); Calc. Creatinine Clearance 0 mL/min (70-130); Calcium 9.8 mg/dL (7.8-10.44); Carbon Dioxide 13 mmol/L (22-29); Chloride 96 mmol/L (98-107); Estimated GFR 94; Globulin 3.4 g/dL (2.4-3.5); Glucose 294 mg/dL (70-105); Potassium 3.3 mmol/L (3.5-5.1); Protein, Total 7.6 g/dL (6.0-8.3); Sodium 127 mmol/L (136-145)
[2023-03-07] MEDS ORDERED: Ondansetron PF 4 MG/2 ML Vial ONE (18:05)
[2023-03-07] MEDS ORDERED: Morphine 4 MG/ML VIAL ONE (18:05)
[2023-03-07 18:18] LABS: BHCG - Serum POSITIVE (NEGATIVE); Pregs Control Background? CLEAR/WHITE (CLR/WHITE); Pregs Control Bar Appear? YES (CONTROL BAR)
[2023-03-07 18:35] LABS: Acetaminophen Less than 10 mcg/mL (10.0-30.0); Alcohol 108.7 mg/dL (Less than 10); Lipase 92 U/L (8-78); Salicylate Less than 8.0 mg/dL (15.0-30.0)
[2023-03-07 18:56] LABS: Actual Bicarbonate (HCO3v) 17.5 mEq/L (22-28); Base Excess -5.9 mEq/L (-2.0 to +3.0); Calcium, Ionized (venous) 1.15 mmol/L (1.16-1.32); Chloride (VBG) 96 mmol/L (98-106); Hematocrit-VBG 47 % (36.0-47.0); Sodium 132.9 mmol/L (133-146); pH (venous) 7.392 (7.32-7.43)
[2023-03-07 19:03] LABS: #Basophils 0.1 thou/uL (0.0-0.2); #Eosinphils 0.3 thou/uL (0.0-0.7); #Monocytes 0.5 thou/uL (0.11-0.59); %Basophils 1.1 % (0.0-1.0); %Eosinophils 3.3 % (0.0-10.0); %Lymphocytes 31.9 % (21.0-51.0); %Monocytes 5.9 % (0.0-10.0); %Neutrophils 57.6 % (42.0-75.0); Hemoglobin 14.6 g/dL (12.0-16.0); Mean Corpuscular HGB CONC 35.6 g/dL (32.0-36.0); Mean Corpuscular Hemoglobin 30.2 pg (27.0-31.0); Mean Corpuscular Volume 84.9 fl (78.0-98.0); Mean Platelet Volume 11.6 fL (7.4-10.4); Platelet Count 284 10x3/uL (130-400); RBC Distribution Width 12.8 % (11.5-14.5); Red Blood Cell (RBC) Count 4.83 mill/uL (4.20-5.40); White Blood Cell (WBC) Count 8.8 10x3/uL (4.8-10.8)
[2023-03-07 19:12] LABS: Pregnancy Test - Urine (BHCG) POSITIVE (Negative); Pregu Control Background? CLEAR/WHITE (CLR/WHITE); Pregu Control Bar Appear? YES (CONTROL BAR); Specific Gravity 1.021 (1.002-1.036)
[2023-03-07 19:13] LABS: Bilirubin Negative (Negative); Blood, Urine 3+ (Negative); CAUTI Indications for Culture Pelvic or flank pain; Clarity Clear (Clear); Glucose, Urine (Dipstick) Greater than 1000 mg/dL (Negative); Ketone, Urine 60 mg/dL (Negative); Leukocyte Negative Leu/uL (Negative); Nitrite Negative (Negative); Protein, Urine (Dipstick) 10 mg/dL (Neg-Trace); RBC/HPF 0-3 HPF (0-3); Specific Gravity, Urine 1.021 (1.002-1.036); Squamous Epithelial 0-3 HPF (0-3); Urobilinogen Normal mg/dL (Less than 2); WBC/HPF 0-3 HPF (0-3)
[2023-03-07 19:20] LABS: Amphetamine Not Detected (NotDetected); Barbiturates Screen Not Detected (NotDetected); Benzodiazepine Screen Not Detected (NotDetected); Cocaine Metabolite Screen Not Detected (NotDetected); Methadone Not Detected (NotDetected); Methamphetamine Not Detected (NotDetected); Opiate Screen Detected (NotDetected); Oxycodone Screen Not Detected (NotDetected); Phencyclidine (PCP) Not Detected (NotDetected); THC/Cannabinoid Screen Not Detected (NotDetected); Tricyclic Screen Not Detected (NotDetected)
[2023-03-07 19:23] LABS: ALT (SGPT) 92 U/L (8-55); AST (SGOT) 194 U/L (5-34); Albumin 4.5 g/dL (3.5-5.0); Alkaline Phosphatase 104 U/L (40-110); Anion Gap 22 mmol/L (10-20); BUN (Urea Nitrogen) Less than 4 mg/dL (7.0-18.7); Bilirubin, Total 0.7 mg/dL (0.2-1.2); Calc. Creatinine Clearance 0 mL/min (70-130); Calcium 9.9 mg/dL (7.8-10.44); Carbon Dioxide 15 mmol/L (22-29); Chloride 95 mmol/L (98-107); Estimated GFR 101; Globulin 3.7 g/dL (2.4-3.5); Glucose 249 mg/dL (70-105); Potassium 3.6 mmol/L (3.5-5.1); Protein, Total 8.2 g/dL (6.0-8.3); Sodium 128 mmol/L (136-145)
[2023-03-07 19:25] LABS: Troponin I Less than 0.010 ng/mL (< 0.028)
[2023-03-07 19:27] LABS: Bacteria/HPF Rare-Few HPF (None Seen)
[2023-03-07 19:28] LABS: Urine Culture Reflex No No
[2023-03-07 21:48] LABS: Anion Gap 17 mmol/L (10-20); BUN (Urea Nitrogen) Less than 4 mg/dL (7.0-18.7); Calc. Creatinine Clearance 0 mL/min (70-130); Carbon Dioxide 18 mmol/L (22-29); Chloride 98 mmol/L (98-107); Estimated GFR 98; Glucose 222 mg/dL (70-105); Potassium 3.5 mmol/L (3.5-5.1); Sodium 129 mmol/L (136-145)
[2023-03-07] MEDS ORDERED: fentaNYL 50 mcg/mL 1 mL Vial ONE (22:13)
[2023-03-07 22:55] LABS: Lactic Acid 0.9 mmol/L (0.5-2.2)
== END 2023-03-07 23:47 | disposition short-term general hospital (02) ==
LOC: ERS 15:49
DX: O99.281 Endocrine, nutritional and metabolic diseases complicating pregnancy, first trimester (principal); O99.311 Alcohol use complicating pregnancy, first trimester; O24.911 Unspecified diabetes mellitus in pregnancy, first trimester; E87.20 Acidosis, unspecified; E87.6 Hypokalemia; E78.5 Hyperlipidemia, unspecified; F17.210 Nicotine dependence, cigarettes, uncomplicated; Z79.01 Long term (current) use of anticoagulants; Z3A.01 Less than 8 weeks gestation of pregnancy
CPT/HCPCS: 36415; 76856; 80053; 80306; 80307; 81001; 81025; 82010; 82805; 83605; 83690; 84484; 84702; 84703; 85025; 93005; 96361; 96374; 96375; J2270; J2405; J3010

== ENCOUNTER 2023-06-02 12:49 | Inpatient (IN) | payer BC ==
[2023-06-02 13:55] LABS: #Basophils 0.1 thou/uL (0.0-0.2); #Eosinphils 0.1 thou/uL (0.0-0.7); #Monocytes 0.5 thou/uL (0.11-0.59); #Neutrophils 3.7 thou/uL (1.40-6.50); %Basophils 1.4 % (0.0-1.0); %Eosinophils 1.8 % (0.0-10.0); %Monocytes 7.2 % (0.0-10.0); %Neutrophils 59.3 % (42.0-75.0); Hematocrit 38.2 % (36.0-47.0); Hemoglobin 13.3 g/dL (12.0-16.0); Mean Corpuscular HGB CONC 34.8 g/dL (32.0-36.0); Mean Corpuscular Hemoglobin 30.5 pg (27.0-31.0); Mean Corpuscular Volume 87.6 fl (78.0-98.0); Mean Platelet Volume 12.3 fL (7.4-10.4); Platelet Count 253 10x3/uL (130-400); RBC Distribution Width 13.2 % (11.5-14.5); Red Blood Cell (RBC) Count 4.36 mill/uL (4.20-5.40); White Blood Cell (WBC) Count 6.3 10x3/uL (4.8-10.8)
[2023-06-02] MEDS ORDERED: Ketorolac Tromethamine 30 MG/ML VIAL ONE ×2 (14:01→14:56)
[2023-06-02] MEDS ORDERED: Ondansetron PF 4 MG/2 ML Vial ONE ×2 (14:02→14:56)
[2023-06-02 14:13] LABS: ALT (SGPT) 21 U/L (8-55); AST (SGOT) 20 U/L (5-34); Albumin 4.1 g/dL (3.5-5.0); Alkaline Phosphatase 75 U/L (40-110); Anion Gap 15 mmol/L (10-20); BUN (Urea Nitrogen) 8 mg/dL (7.0-18.7); Bilirubin, Total 0.4 mg/dL (0.2-1.2); Calc. Creatinine Clearance 0 mL/min (70-130); Calcium 9.1 mg/dL (7.8-10.44); Carbon Dioxide 22 mmol/L (22-29); Chloride 106 mmol/L (98-107); Estimated GFR 85; Globulin 3.4 g/dL (2.4-3.5); Lipase 14 U/L (8-78); Potassium 3.5 mmol/L (3.5-5.1); Protein, Total 7.5 g/dL (6.0-8.3); Sodium 139 mmol/L (136-145)
[2023-06-02 14:29] LABS: Glucose 468 mg/dL (70-105)
[2023-06-02 14:31] LABS: Bacteria/HPF None Seen HPF (None Seen); Bilirubin Negative (Negative); Blood, Urine Negative (Negative); CAUTI Indications for Culture Pelvic or flank pain; Clarity Clear (Clear); Glucose, Urine (Dipstick) Greater than 1000 mg/dL (Negative); Ketone, Urine 10 mg/dL (Negative); Leukocyte Negative Leu/uL (Negative); Nitrite Negative (Negative); Protein, Urine (Dipstick) Negative (Neg-Trace); RBC/HPF 0-3 HPF (0-3); Specific Gravity, Urine 1.026 (1.002-1.036); Squamous Epithelial 0-3 HPF (0-3); Urobilinogen Normal mg/dL (Less than 2); WBC/HPF 0-3 HPF (0-3); pH, Urine 5.5 (5.0-9.0)
[2023-06-02 14:33] LABS: Urine Culture Reflex No No
[2023-06-02] MEDS ORDERED: diphenhydrAMINE 50 MG/ML VIAL ONE (15:16)
[2023-06-02] MEDS ORDERED: Metoclopramide HCl 10 MG/2 ML VIAL ONE (15:17)
[2023-06-02 16:24] LABS: Actual Bicarbonate (HCO3v) 19.5 mEq/L (22-28); Base Excess -6.7 mEq/L (-2.0 to +3.0); Calcium, Ionized (venous) 1.05 mmol/L (1.16-1.32); Chloride (VBG) 110 mmol/L (98-106); Hematocrit-VBG 42 % (36.0-47.0); Hemoglobin (Hb) 14.2 g/dL (11.7-15.5); Potassium (VBG) 4.12 mmol/L (3.70-5.30); Sodium 143 mmol/L (133-146); pH (venous) 7.291 (7.32-7.43)
[2023-06-02] MEDS ORDERED: NS 0.9% w/ 20 MEQ KCL 2,000 ML ONE (17:06)
[2023-06-02] MEDS ORDERED: INSULIN REGULAR IN 0.9 % NACL 100 UNITS/100 ML BAG ONE (17:08)
[2023-06-02] MEDS ORDERED: Dicyclomine 20 MG/2 ML VIAL ONE (18:09)
[2023-06-02] MEDS ORDERED: Famotidine/PF 20 mg/2ml Vial ONE (18:09)
[2023-06-02] MEDS ORDERED: Morphine 4 MG/ML VIAL ONE (19:58)
[2023-06-02] MEDS ORDERED: D5 1/2 NS w/20 mEq KCL 1,000 ML ONE (20:28)
[2023-06-02 21:02] LABS: BHCG - Serum Negative (NEGATIVE); Pregs Control Background? CLEAR/WHITE (CLR/WHITE); Pregs Control Bar Appear? YES (CONTROL BAR)
[2023-06-02 21:16] LABS: Magnesium 1.7 mg/dL (1.6-2.6)
[2023-06-02 21:20] LABS: Troponin I Less than 0.010 ng/mL (< 0.028)
[2023-06-02 21:23] LABS: Phosphorus 1.1 mg/dL (2.3-4.7)
[2023-06-02] MEDS ORDERED: Electrolyte Replacement Protocol FS SCH (22:45)
[2023-06-02 23:24] VITALS: BMI 24.7
[2023-06-02] MEDS ORDERED: HumaLOG 300 UNITS/3 ML VIAL SC PRN (23:39)
[2023-06-02] MEDS ORDERED: Dextrose 5% in Water 1,000 ML IV PRN (23:39)
[2023-06-02] MEDS ORDERED: Dextrose 50% Abboject 50 ML SYRINGE SLOW IVP PRN (23:39)
[2023-06-02] MEDS ORDERED: Glucagon 1 MG/ML KIT IM PRN (23:39)
[2023-06-02] MEDS ORDERED: Magnesium 2 GM/50 ML(in water) 2 GM in Premix 1 BAG IVPB SCH (23:45)
[2023-06-02] MEDS ORDERED: Potassium Chloride 20 MEQ TAB PO SCH (23:45)
[2023-06-03] MEDS: PHOS-NAK 1 PKT PACK PO SCH ×4 (01:00→13:00)
[2023-06-03] MEDS ORDERED: HUMULIN R 100 UNITS in Sodium Chloride 0.9% 100 ML IVPB SCH (01:09)
[2023-06-03] MEDS ORDERED: Electrolyte Replacement Protocol 1 EACH IVPB ONE (01:09)
[2023-06-03] MEDS ORDERED: Acetaminophen 650 MG Suppository PR PRN (01:09)
[2023-06-03] MEDS ORDERED: Dextrose 5 %-0.45 % NaCl 1,000 ML IV PRN (01:09)
[2023-06-03] MEDS ORDERED: Ondansetron ODT 4 MG TAB PO PRN (01:09)
[2023-06-03] MEDS ORDERED: Sodium Chloride 0.9% 1,000 ML IV PRN ×4 (01:09)
[2023-06-03] MEDS ORDERED: NS 0.9% w/ 20 MEQ KCL 1,000 ML IV PRN ×2 (01:09)
[2023-06-03] MEDS ORDERED: Guaifenesin DM 100-10/5 ML UDCUP PO PRN (01:09)
[2023-06-03] MEDS ORDERED: Senokot S 8.6-50 MG TAB PO PRN (01:09)
[2023-06-03] MEDS ORDERED: Dextrose 50% Abboject 50 ML SYRINGE SLOW IVP PRN (01:09)
[2023-06-03] MEDS ORDERED: D5 1/2 NS w/20 mEq KCL 1,000 ML IV PRN (01:09)
[2023-06-03] MEDS ORDERED: Acetaminophen 325 MG TAB PO PRN (01:09)
[2023-06-03] MEDS ORDERED: Famotidine/PF 20 mg/2ml Vial SLOW IVP SCH (01:30)
[2023-06-03 01:50] LABS: Anion Gap 12 mmol/L (10-20); BUN (Urea Nitrogen) 5 mg/dL (7.0-18.7); Calc. Creatinine Clearance 120 mL/min (70-130); Calcium 8.5 mg/dL (7.8-10.44); Carbon Dioxide 19 mmol/L (22-29); Chloride 114 mmol/L (98-107); Estimated GFR 110; Glucose 119 mg/dL (70-105); Potassium 3.9 mmol/L (3.5-5.1); Sodium 141 mmol/L (136-145)
[2023-06-03] MEDS: Ondansetron PF 4 MG/2 ML Vial IVP PRN ×2 (02:16→09:28)
[2023-06-03] MEDS: Morphine 2 MG/ML VIAL SLOW IVP PRN ×2 (02:28→06:33)
[2023-06-03 06:15] LABS: #Basophils 0.1 thou/uL (0.0-0.2); #Eosinphils 0.2 thou/uL (0.0-0.7); #Monocytes 0.6 thou/uL (0.11-0.59); #Neutrophils 4.4 thou/uL (1.40-6.50); %Eosinophils 2.4 % (0.0-10.0); %Lymphocytes 39.1 % (21.0-51.0); %Neutrophils 50.3 % (42.0-75.0); Hematocrit 36.9 % (36.0-47.0); Hemoglobin 11.9 g/dL (12.0-16.0); Mean Corpuscular HGB CONC 32.2 g/dL (32.0-36.0); Mean Corpuscular Hemoglobin 30.2 pg (27.0-31.0); Mean Platelet Volume 12.4 fL (7.4-10.4); RBC Distribution Width 13.5 % (11.5-14.5); Red Blood Cell (RBC) Count 3.94 mill/uL (4.20-5.40); White Blood Cell (WBC) Count 8.8 10x3/uL (4.8-10.8)
[2023-06-03 06:21] LABS: Mean Corpuscular Volume 93.7 fl (78.0-98.0); Platelet Count 116 10x3/uL (130-400)
[2023-06-03 06:40] LABS: Calcium 8.4 mg/dL (7.8-10.44); Chloride 114 mmol/L (98-107); Potassium 4.8 mmol/L (3.5-5.1); Sodium 137 mmol/L (136-145)
[2023-06-03 06:41] LABS: Glucose 180 mg/dL (70-105)
[2023-06-03 06:42] LABS: Carbon Dioxide 13 mmol/L (22-29)
[2023-06-03 06:44] LABS: Calc. Creatinine Clearance 120 mL/min (70-130); Estimated GFR 110
[2023-06-03 06:45] LABS: BUN (Urea Nitrogen) 4 mg/dL (7.0-18.7)
[2023-06-03 06:48] LABS: Anion Gap 16 mmol/L (10-20)
[2023-06-03 08:40] LABS: Acetaminophen Less than 10 mcg/mL (10.0-30.0); Alcohol Less than 10.0 mg/dL (Less than 10); Salicylate Less than 8.0 mg/dL (15.0-30.0)
[2023-06-03] MEDS: Famotidine/PF 20 mg/2ml Vial SLOW IVP SCH ×2 (09:29→20:17)
[2023-06-03] MEDS: Insulin Glargine 30 UNITS/0.3 ML VIAL SC SCH (09:29)
[2023-06-03 09:36] LABS: Phosphorus 3.8 mg/dL (2.3-4.7)
[2023-06-03 10:01] LABS: Amphetamine Not Detected (NotDetected); Barbiturates Screen Not Detected (NotDetected); Benzodiazepine Screen Not Detected (NotDetected); Cocaine Metabolite Screen Not Detected (NotDetected); Methadone Not Detected (NotDetected); Methamphetamine Not Detected (NotDetected); Opiate Screen Not Detected (NotDetected); Oxycodone Screen Not Detected (NotDetected); Phencyclidine (PCP) Not Detected (NotDetected); THC/Cannabinoid Screen Not Detected (NotDetected); Tricyclic Screen Not Detected (NotDetected)
[2023-06-03 10:52] LABS: Chloride 113 mmol/L (98-107); Potassium 4.2 mmol/L (3.5-5.1); Sodium 138 mmol/L (136-145)
[2023-06-03 10:53] LABS: Calcium 8.2 mg/dL (7.8-10.44); Glucose 174 mg/dL (70-105)
[2023-06-03 10:55] LABS: Anion Gap 8 mmol/L (10-20); Carbon Dioxide 21 mmol/L (22-29)
[2023-06-03 10:57] LABS: BUN (Urea Nitrogen) 4 mg/dL (7.0-18.7); Calc. Creatinine Clearance 125 mL/min (70-130); Estimated GFR 114
[2023-06-03 10:59] LABS: Magnesium 1.9 mg/dL (1.6-2.6)
[2023-06-03] MEDS: HYDROcodone/Acetaminophen 5/325 mg Tablet PO PRN ×2 (13:00→20:17)
[2023-06-03] MEDS: Metoclopramide HCl 10 MG/2 ML VIAL IVP PRN ×2 (13:00→20:17)
[2023-06-03] MEDS: D5 1/2 NS w/20 mEq KCL 1,000 ML IV SCH (13:00)
[2023-06-03] MEDS ORDERED: Magnesium 2 GM/50 ML(in water) 2 GM in Premix 1 BAG IVPB SCH (14:00)
[2023-06-03] MEDS: HumaLOG 300 UNITS/3 ML VIAL SC PRN (18:15)
[2023-06-04] MEDS: HYDROcodone/Acetaminophen 5/325 mg Tablet PO PRN ×4 (01:04→14:08)
[2023-06-04] MEDS: D5 1/2 NS w/20 mEq KCL 1,000 ML IV SCH (01:05)
[2023-06-04 04:23] VITALS: TEMP 98
[2023-06-04 05:55] LABS: #Basophils 0.1 thou/uL (0.0-0.2); #Eosinphils 0.2 thou/uL (0.0-0.7); #Monocytes 0.4 thou/uL (0.11-0.59); #Neutrophils 3.1 thou/uL (1.40-6.50); %Eosinophils 2.9 % (0.0-10.0); %Lymphocytes 38.8 % (21.0-51.0); %Monocytes 7.1 % (0.0-10.0); Hematocrit 30.8 % (36.0-47.0); Hemoglobin 10.6 g/dL (12.0-16.0); Mean Corpuscular HGB CONC 34.4 g/dL (32.0-36.0); Mean Corpuscular Hemoglobin 30.3 pg (27.0-31.0); Mean Platelet Volume 12.8 fL (7.4-10.4); Platelet Count 188 10x3/uL (130-400); RBC Distribution Width 13.4 % (11.5-14.5); White Blood Cell (WBC) Count 6.2 10x3/uL (4.8-10.8)
[2023-06-04] MEDS: HumaLOG 300 UNITS/3 ML VIAL SC PRN (05:56)
[2023-06-04 06:28] LABS: Anion Gap 9 mmol/L (10-20); BUN (Urea Nitrogen) 4 mg/dL (7.0-18.7); Calc. Creatinine Clearance 115 mL/min (70-130); Calcium 9.2 mg/dL (7.8-10.44); Carbon Dioxide 24 mmol/L (22-29); Chloride 105 mmol/L (98-107); Estimated GFR 104; Glucose 221 mg/dL (70-105); Magnesium 1.4 mg/dL (1.6-2.6); Potassium 4.1 mmol/L (3.5-5.1); Sodium 134 mmol/L (136-145)
[2023-06-04 06:42] LABS: Phosphorus 4.9 mg/dL (2.3-4.7)
[2023-06-04] MEDS ORDERED: Magnesium Sulfate In Water 4 GM in Premix 1 BAG IVPB SCH (08:00)
[2023-06-04 08:39] VITALS: BP 109/75
[2023-06-04] MEDS: Famotidine/PF 20 mg/2ml Vial SLOW IVP SCH (09:30)
[2023-06-04] MEDS: Metoclopramide HCl 10 MG/2 ML VIAL IVP PRN (09:30)
[2023-06-04] MEDS: Insulin Glargine 30 UNITS/0.3 ML VIAL SC SCH (09:31)
[2023-06-06] MEDS ORDERED: FLU VACC QS2023-24(6MOS UP)/PF 60 MCG/0.5 ML SYRINGE IM ONE (01:30)
== END 2023-06-04 15:11 | disposition home or self-care (01) | DRG 638 ==
LOC: ERS 12:49 → ERHOLD 17:51 → T4-B 06-03 00:32
PROVIDERS: ADMIT Emergency Medicine; ATTEND Family Medicine
PROC: 4A043R1 Measurement of Venous Saturation, Peripheral, Percutaneous Approach (ICD-10-PCS; principal; 2023-06-02)
DX: E11.10 Type 2 diabetes mellitus with ketoacidosis without coma (principal); E87.20 Acidosis, unspecified; K86.0 Alcohol-induced chronic pancreatitis; Z59.00 Homelessness unspecified; Z51.5 Encounter for palliative care; B19.20 Unspecified viral hepatitis C without hepatic coma; B18.2 Chronic viral hepatitis C; E11.65 Type 2 diabetes mellitus with hyperglycemia; F10.10 Alcohol abuse, uncomplicated; F17.210 Nicotine dependence, cigarettes, uncomplicated; R11.2 Nausea with vomiting, unspecified; E83.39 Other disorders of phosphorus metabolism; E83.42 Hypomagnesemia; Z79.899 Other long term (current) drug therapy; Z88.8 Allergy status to other drugs, medicaments and biological substances; Z98.890 Other specified postprocedural states
CPT/HCPCS: 36415; 36416; 80048; 80053; 80306; 80307; 81001; 82010; 82550; 82805; 83605; 83690; 83735; 84100; 84484; 84703; 85025; 93005; J1200; J1650; J1815; J1885; J2270; J2272; J2405; J2765; J3475; J3480; S0028

== ENCOUNTER 2023-06-12 12:41 | Emergency (ER) | payer BC ==
[2023-06-12] MEDS ORDERED: Ondansetron PF 4 MG/2 ML Vial ONE (13:56)
[2023-06-12 14:11] LABS: #Basophils 0.1 thou/uL (0.0-0.2); #Eosinphils 0.1 thou/uL (0.0-0.7); #Monocytes 0.8 thou/uL (0.11-0.59); %Basophils 0.8 % (0.0-1.0); %Eosinophils 1.1 % (0.0-10.0); %Lymphocytes 9.6 % (21.0-51.0); Hematocrit 34.3 % (36.0-47.0); Hemoglobin 11.9 g/dL (12.0-16.0); Mean Corpuscular HGB CONC 34.7 g/dL (32.0-36.0); Mean Corpuscular Hemoglobin 29.7 pg (27.0-31.0); Mean Corpuscular Volume 85.5 fl (78.0-98.0); Platelet Count 335 10x3/uL (130-400); RBC Distribution Width 13.1 % (11.5-14.5); Red Blood Cell (RBC) Count 4.01 mill/uL (4.20-5.40); White Blood Cell (WBC) Count 6.6 10x3/uL (4.8-10.8)
[2023-06-12] MEDS ORDERED: Ketorolac Tromethamine 30 MG/ML VIAL ONE (14:26)
[2023-06-12 14:47] LABS: BHCG - Serum Negative (NEGATIVE); Pregs Control Background? CLEAR/WHITE (CLR/WHITE); Pregs Control Bar Appear? YES (CONTROL BAR)
[2023-06-12 14:51] LABS: SARS-CoV-2 NAA Rapid Test DETECTED (NotDetected)
[2023-06-12 14:54] LABS: ALT (SGPT) 13 U/L (8-55); AST (SGOT) 16 U/L (5-34); Albumin 3.9 g/dL (3.5-5.0); Alkaline Phosphatase 52 U/L (40-110); Anion Gap 14 mmol/L (10-20); BUN (Urea Nitrogen) 4 mg/dL (7.0-18.7); Bilirubin, Total 0.3 mg/dL (0.2-1.2); CK (CPK) 49 U/L (29-168); Calc. Creatinine Clearance 0 mL/min (70-130); Calcium 8.8 mg/dL (7.8-10.44); Carbon Dioxide 20 mmol/L (22-29); Chloride 102 mmol/L (98-107); Estimated GFR 112; Globulin 3.1 g/dL (2.4-3.5); Glucose 153 mg/dL (70-105); Lipase 5 U/L (8-78); Potassium 3.7 mmol/L (3.5-5.1); Sodium 132 mmol/L (136-145)
[2023-06-12 14:56] LABS: Troponin I Less than 0.010 ng/mL (< 0.028)
[2023-06-12] MEDS ORDERED: Acetaminophen 500 MG TAB ONE (15:23)
[2023-06-12 16:53] LABS: Actual Bicarbonate (HCO3v) 20.1 mEq/L (22-28); Base Excess -3.5 mEq/L (-2.0 to +3.0); Calcium, Ionized (venous) 0.98 mmol/L (1.16-1.32); Chloride (VBG) 104 mmol/L (98-106); Hematocrit-VBG 36 % (36.0-47.0); Hemoglobin (Hb) 12.4 g/dL (11.7-15.5); Potassium (VBG) 3.77 mmol/L (3.70-5.30); Sodium 135 mmol/L (133-146); pH (venous) 7.421 (7.32-7.43)
== END 2023-06-12 17:32 | disposition home or self-care (01) ==
LOC: ERS 12:41
DX: U07.1 COVID-19 (principal); E11.9 Type 2 diabetes mellitus without complications; F17.210 Nicotine dependence, cigarettes, uncomplicated
CPT/HCPCS: 36416; 71045; 80053; 82010; 82550; 82805; 83605; 83690; 84484; 84703; 85025; 93005; 96374; 96375; J1885; J2405

== ENCOUNTER 2023-06-13 03:49 | Emergency (ER) | payer BC ==
[2023-06-13] MEDS ORDERED: Ibuprofen 200 MG TAB ONE ×2 (04:26→06:21)
[2023-06-13 05:07] LABS: #Monocytes 0.7 thou/uL (0.11-0.59); #Neutrophils 3.6 thou/uL (1.40-6.50); %Basophils 0.6 % (0.0-1.0); %Eosinophils 0.2 % (0.0-10.0); %Lymphocytes 12.4 % (21.0-51.0); %Neutrophils 72.4 % (42.0-75.0); Hematocrit 31.5 % (36.0-47.0); Mean Corpuscular HGB CONC 34.9 g/dL (32.0-36.0); Mean Corpuscular Volume 85.8 fl (78.0-98.0); Mean Platelet Volume 11.8 fL (7.4-10.4); Platelet Count 251 10x3/uL (130-400); Red Blood Cell (RBC) Count 3.67 mill/uL (4.20-5.40)
[2023-06-13 05:07] LABS: Actual Bicarbonate (HCO3v) 21.1 mEq/L (22-28); Base Excess -2.1 mEq/L (-2.0 to +3.0); Calcium, Ionized (venous) 1.08 mmol/L (1.16-1.32); Chloride (VBG) 101 mmol/L (98-106); Hematocrit-VBG 34 % (36.0-47.0); Hemoglobin (Hb) 11.7 g/dL (11.7-15.5); Potassium (VBG) 3.58 mmol/L (3.70-5.30); Sodium 134 mmol/L (133-146); pH (venous) 7.448 (7.32-7.43)
[2023-06-13] MEDS ORDERED: Ondansetron ODT 4 MG TAB ONE (05:23)
[2023-06-13 05:29] LABS: ALT (SGPT) 13 U/L (8-55); AST (SGOT) 16 U/L (5-34); Albumin 3.5 g/dL (3.5-5.0); Alkaline Phosphatase 52 U/L (40-110); Anion Gap 14 mmol/L (10-20); BUN (Urea Nitrogen) 5 mg/dL (7.0-18.7); Bilirubin, Total 0.3 mg/dL (0.2-1.2); Calc. Creatinine Clearance 0 mL/min (70-130); Calcium 8.6 mg/dL (7.8-10.44); Carbon Dioxide 20 mmol/L (22-29); Chloride 104 mmol/L (98-107); Estimated GFR 91; Globulin 2.9 g/dL (2.4-3.5); Glucose 318 mg/dL (70-105); Potassium 3.6 mmol/L (3.5-5.1); Protein, Total 6.4 g/dL (6.0-8.3); Sodium 134 mmol/L (136-145)
== END 2023-06-13 06:35 | disposition home or self-care (01) ==
LOC: ERS 03:49
DX: U07.1 COVID-19 (principal); E11.9 Type 2 diabetes mellitus without complications; I10 Essential (primary) hypertension; F17.210 Nicotine dependence, cigarettes, uncomplicated
CPT/HCPCS: 36415; 80053; 82010; 82805; 85025; 99284; Q0162

== ENCOUNTER 2023-12-11 19:56 | Inpatient (IN) | payer BC ==
[~2023-12-11 19:56] MED LIST changes: -Iopamidol 370 76% 100 ML VIAL ONE; +Iopamidol-370 76% 500 ML MDV (1 ML CHARGE) ONE
[2023-12-11] MEDS ORDERED: methylPREDNISolone Sod Succ/PF 125 MG/2 ML VIAL ONE (20:13)
[2023-12-11] MEDS ORDERED: diphenhydrAMINE 50 MG/ML VIAL ONE (20:13)
[2023-12-11 20:55] LABS: #Basophils 0.04 10x3/uL (0.0-0.2); %Eosinophils 2.6 % (0.0-10.0); %Lymphocytes 38.6 % (21.0-51.0); %Monocytes 9.5 % (0.0-10.0); %Neutrophils 48.1 % (42.0-75.0); Hematocrit 28.6 % (36.0-47.0); Hemoglobin 10.3 g/dL (12.0-16.0); Mean Corpuscular Hemoglobin 29.3 pg (27.0-31.0); Mean Corpuscular Volume 81.3 fL (78.0-98.0); Platelet Count 190 10x3/uL (130-400); RBC Distribution Width 13.4 % (11.5-14.5); Red Blood Cell (RBC) Count 3.52 mill/uL (4.20-5.40)
[2023-12-11 21:06] LABS: ALT (SGPT) 12 U/L (8-55); AST (SGOT) 15 U/L (5-34); Alkaline Phosphatase 47 U/L (40-110); Anion Gap 16 mmol/L (10-20); BUN (Urea Nitrogen) 8 mg/dL (7.0-18.7); Bilirubin, Total 0.3 mg/dL (0.2-1.2); Calc. Creatinine Clearance 0 mL/min (70-130); Calcium 7.6 mg/dL (7.8-10.44); Carbon Dioxide 19 mmol/L (22-29); Chloride 111 mmol/L (98-107); Estimated GFR 102; Globulin 2.3 g/dL (2.4-3.5); Glucose 172 mg/dL (70-105); Potassium 2.9 mmol/L (3.5-5.1); Protein, Total 5.3 g/dL (6.0-8.3); Sodium 143 mmol/L (136-145)
[2023-12-11 21:09] LABS: Troponin I Less than 0.010 ng/mL (< 0.028)
[2023-12-11] MEDS ORDERED: Famotidine/PF 20 mg/2ml Vial ONE (21:54)
[2023-12-11] MEDS ORDERED: Ketorolac Tromethamine 30 MG (1 mL) VIAL ONE (23:15)
[2023-12-11] MEDS ORDERED: Potassium Chloride 20 MEQ TAB ONE (23:15)
[2023-12-11] MEDS ORDERED: Potassium Chloride 20 MEQ (100 mL) BAG ONE (23:16)
[2023-12-12] MEDS ORDERED: Ondansetron PF 4 MG/2 ML Vial IVP PRN (00:45)
[2023-12-12] MEDS ORDERED: Acetaminophen 325 MG TAB PO PRN (00:45)
[2023-12-12] MEDS ORDERED: Ondansetron ODT 4 MG TAB SL PRN (00:45)
[2023-12-12] MEDS ORDERED: Dextrose 5% in Water 1,000 ML IV PRN ×2 (00:54→05:28)
[2023-12-12] MEDS ORDERED: Dextrose 50% Abboject 50 ML SYRINGE SLOW IVP PRN ×3 (00:54→08:50)
[2023-12-12] MEDS ORDERED: Glucagon 1 MG/ML KIT IM PRN ×2 (00:54→05:28)
[2023-12-12] MEDS ORDERED: HumaLOG 300 UNITS/3 ML VIAL SC PRN (00:54)
[2023-12-12] MEDS ORDERED: hydrALAZINE 20 MG/ML VIAL SLOW IVP PRN (00:54)
[2023-12-12] MEDS: traMADol HCl 50 MG TAB PO PRN (02:43)
[2023-12-12] MEDS: HumaLOG 300 UNITS/3 ML VIAL SC PRN (02:43)
[2023-12-12] MEDS: traZODone HCl 50 MG TAB PO PRN (02:43)
[2023-12-12] MEDS: Sodium Chloride 0.9% 1,000 ML IV SCH (04:07)
[2023-12-12 04:57] LABS: #Basophils 0.03 10x3/uL (0.0-0.2); #Eosinphils Less than 0.03 10x3/uL (0.0-0.7); %Basophils 0.5 % (0.0-1.0); %Lymphocytes 10.6 % (21.0-51.0); %Monocytes 0.7 % (0.0-10.0); %Neutrophils 87.9 % (42.0-75.0); Hematocrit 34.7 % (36.0-47.0); Hemoglobin 11.7 g/dL (12.0-16.0); Mean Corpuscular HGB CONC 33.7 g/dL (32.0-36.0); Mean Corpuscular Hemoglobin 28.8 pg (27.0-31.0); Mean Corpuscular Volume 85.5 fL (78.0-98.0); Mean Platelet Volume 12.6 fL (7.4-10.4); Platelet Count 285 10x3/uL (130-400); RBC Distribution Width 13.7 % (11.5-14.5); Red Blood Cell (RBC) Count 4.06 mill/uL (4.20-5.40)
[2023-12-12 05:18] LABS: Magnesium 1.4 mg/dL (1.6-2.6)
[2023-12-12 05:19] LABS: Acetaminophen Less than 10 mcg/mL (10.0-30.0); Alcohol Less than 10.0 mg/dL (Less than 10); Salicylate Less than 8.0 mg/dL (15.0-30.0)
[2023-12-12 05:23] LABS: Hemoglobin A1c 7.2 % (4.0-6.0)
[2023-12-12 05:25] LABS: Anion Gap 18 mmol/L (10-20); BUN (Urea Nitrogen) 8 mg/dL (7.0-18.7); Calc. Creatinine Clearance 0 mL/min (70-130); Carbon Dioxide 14 mmol/L (22-29); Cardiac Risk 2.6 (Less than 4.5); Chloride 109 mmol/L (98-107); Cholesterol 128 mg/dl (< 200 Desired); Estimated GFR 77; Glucose 529 mg/dL (70-105); HDL Cholesterol 49 mg/dL (>60 Neg Risk); Iron 25 ug/dL (50-170); Iron Binding Capacity, Total 388 mcg/dL (265-497); LDL Cholesterol, Calculated 60 mg/dL; Potassium 4.1 mmol/L (3.5-5.1); Sodium 137 mmol/L (136-145); Triglycerides 96 mg/dL (Less than 150)
[2023-12-12 05:26] LABS: Iron 25 ug/dL (50-170); Iron Binding Capacity, Total 373 mcg/dL (265-497)
[2023-12-12] MEDS ORDERED: Electrolyte Replacement Protocol FS PRN (05:30)
[2023-12-12 06:14] LABS: Bacteria/HPF None Seen HPF (None Seen); Bilirubin Negative (Negative); Blood, Urine Negative (Negative); Clarity Clear (Clear); Glucose, Urine (Dipstick) Greater than 1000 mg/dL (Negative); Ketone, Urine Negative (Negative); Leukocyte Negative Leu/uL (Negative); Nitrite Negative (Negative); Protein, Urine (Dipstick) Negative (Neg-Trace); RBC/HPF 0-3 HPF (0-3); Squamous Epithelial 0-3 HPF (0-3); Urobilinogen Normal mg/dL (Less than 2); WBC/HPF None Seen HPF (0-3); pH, Urine 5.5 (5.0-9.0)
[2023-12-12 06:21] LABS: Amphetamine Not Detected (NotDetected); Barbiturates Screen Not Detected (NotDetected); Benzodiazepine Screen Not Detected (NotDetected); Cocaine Metabolite Screen Not Detected (NotDetected); Methadone Not Detected (NotDetected); Methamphetamine Not Detected (NotDetected); Opiate Screen Not Detected (NotDetected); Oxycodone Screen Not Detected (NotDetected); Phencyclidine (PCP) Not Detected (NotDetected); THC/Cannabinoid Screen Not Detected (NotDetected); Tricyclic Screen Not Detected (NotDetected)
[2023-12-12] MEDS: Magnesium Sulfate In Water 4 GM in Premix 1 BAG IVPB SCH (06:35)
[2023-12-12] MEDS: Insulin Glargine 30 UNITS/0.3 ML VIAL SC SCH (06:35)
[2023-12-12] MEDS: Insulin Regular, Human 100 UNIT/ML 10 ML VIAL SC PRN ×2 (06:36→20:59)
[2023-12-12] MEDS ORDERED: D5 1/2 NS w/20 mEq KCL 1,000 ML IV PRN (08:50)
[2023-12-12] MEDS ORDERED: Sodium Chloride 0.9% 1,000 ML IV PRN ×3 (08:50)
[2023-12-12] MEDS ORDERED: NS 0.9% w/ 20 MEQ KCL 1,000 ML IV PRN ×2 (08:50)
[2023-12-12] MEDS ORDERED: Dextrose 5 %-0.45 % NaCl 1,000 ML IV PRN (08:50)
[2023-12-12] MEDS: HYDROcodone/Acetaminophen 5/325 mg Tablet PO PRN (10:03)
[2023-12-12 10:14] LABS: Anion Gap 19 mmol/L (10-20); BUN (Urea Nitrogen) 6 mg/dL (7.0-18.7); Calc. Creatinine Clearance 0 mL/min (70-130); Calcium 8.7 mg/dL (7.8-10.44); Carbon Dioxide 12 mmol/L (22-29); Chloride 112 mmol/L (98-107); Estimated GFR 92; Glucose 373 mg/dL (70-105); Lipase 5 U/L (8-78); Potassium 4.5 mmol/L (3.5-5.1); Sodium 138 mmol/L (136-145)
[2023-12-12] MEDS: Insulin Reg, Human 100 UNITS in Sodium Chloride 0.9% 100 ML IVPB SCH (11:38)
[2023-12-12] MEDS: Sodium Chloride 0.9% 1,000 ML IV PRN (11:38)
[2023-12-12] MEDS: Electrolyte Replacement Protocol 1 EACH IVPB ONE (11:39)
[2023-12-12 13:19] LABS: Anion Gap 16 mmol/L (10-20); BUN (Urea Nitrogen) 6 mg/dL (7.0-18.7); Calc. Creatinine Clearance 120 mL/min (70-130); Calcium 8.4 mg/dL (7.8-10.44); Carbon Dioxide 14 mmol/L (22-29); Chloride 116 mmol/L (98-107); Estimated GFR 105; Glucose 270 mg/dL (70-105); Potassium 3.9 mmol/L (3.5-5.1); Sodium 142 mmol/L (136-145)
[2023-12-12 17:49] LABS: Bacteria/HPF None Seen HPF (None Seen); Bilirubin Negative (Negative); Blood, Urine Negative (Negative); Clarity Clear (Clear); Glucose, Urine (Dipstick) 50 mg/dL (Negative); Ketone, Urine Negative (Negative); Leukocyte Negative Leu/uL (Negative); Nitrite Negative (Negative); Protein, Urine (Dipstick) Negative (Neg-Trace); RBC/HPF None Seen HPF (0-3); Squamous Epithelial 0-3 HPF (0-3); Urobilinogen Normal mg/dL (Less than 2); WBC/HPF 0-3 HPF (0-3)
[2023-12-12 17:55] LABS: Anion Gap 11 mmol/L (10-20); BUN (Urea Nitrogen) 7 mg/dL (7.0-18.7); Calc. Creatinine Clearance 143 mL/min (70-130); Carbon Dioxide 18 mmol/L (22-29); Chloride 114 mmol/L (98-107); Estimated GFR 116; Glucose 129 mg/dL (70-105); Sodium 139 mmol/L (136-145)
[2023-12-13 06:30] LABS: #Basophils 0.03 10x3/uL (0.0-0.2); %Basophils 0.5 % (0.0-1.0); %Eosinophils 1.4 % (0.0-10.0); %Monocytes 6.3 % (0.0-10.0); %Neutrophils 50.5 % (42.0-75.0); Hematocrit 30.9 % (36.0-47.0); Hemoglobin 10.4 g/dL (12.0-16.0); Mean Corpuscular HGB CONC 33.7 g/dL (32.0-36.0); Mean Corpuscular Hemoglobin 29.4 pg (27.0-31.0); Mean Corpuscular Volume 87.3 fL (78.0-98.0); Mean Platelet Volume 11.5 fL (7.4-10.4); Platelet Count 231 10x3/uL (130-400); RBC Distribution Width 13.6 % (11.5-14.5); Red Blood Cell (RBC) Count 3.54 mill/uL (4.20-5.40)
[2023-12-13 06:45] LABS: Anion Gap 11 mmol/L (10-20); BUN (Urea Nitrogen) 7 mg/dL (7.0-18.7); Calc. Creatinine Clearance 140 mL/min (70-130); Calcium 7.9 mg/dL (7.8-10.44); Carbon Dioxide 19 mmol/L (22-29); Chloride 112 mmol/L (98-107); Estimated GFR 114; Glucose 191 mg/dL (70-105); Magnesium 1.6 mg/dL (1.6-2.6); Potassium 3.5 mmol/L (3.5-5.1); Sodium 138 mmol/L (136-145)
[2023-12-13] MEDS: Potassium Chloride 20 MEQ TAB PO SCH (08:42)
[2023-12-13] MEDS: Insulin Glargine 30 UNITS/0.3 ML VIAL SC SCH (08:43)
[2023-12-13] MEDS: Magnesium 2 GM/50 ML(in water) 2 GM in Premix 1 BAG IVPB SCH (08:43)
[2023-12-13] MEDS: Metoclopramide HCl 10 MG (2 mL) VIAL IVP SCH (12:31)
[2023-12-13] MEDS: Pancrelipase DR 12,000 1 CAP PO SCH (12:32)
[2023-12-13] MEDS: HYDROcodone/Acetaminophen 10/325 mg Tablet PO PRN (14:02)
[2023-12-13 17:09] VITALS: BMI 27.5
[2023-12-14 04:11] LABS: #Basophils 0.03 10x3/uL (0.0-0.2); %Basophils 0.4 % (0.0-1.0); %Eosinophils 2.1 % (0.0-10.0); %Lymphocytes 36.7 % (21.0-51.0); %Monocytes 6.3 % (0.0-10.0); %Neutrophils 54.2 % (42.0-75.0); Hematocrit 31.1 % (36.0-47.0); Hemoglobin 10.6 g/dL (12.0-16.0); Mean Corpuscular HGB CONC 34.1 g/dL (32.0-36.0); Mean Corpuscular Hemoglobin 29.4 pg (27.0-31.0); Mean Corpuscular Volume 86.4 fL (78.0-98.0); Mean Platelet Volume 12.2 fL (7.4-10.4); Platelet Count 228 10x3/uL (130-400); RBC Distribution Width 13.3 % (11.5-14.5)
[2023-12-14] MEDS: Ketorolac Tromethamine 30 MG (1 mL) VIAL IVP PRN (04:15)
[2023-12-14 04:33] LABS: ALT (SGPT) 30 U/L (8-55); AST (SGOT) 39 U/L (5-34); Albumin 2.7 g/dL (3.5-5.0); Alkaline Phosphatase 66 U/L (40-110); Anion Gap 9 mmol/L (10-20); BUN (Urea Nitrogen) 7 mg/dL (7.0-18.7); Bilirubin, Total 0.1 mg/dL (0.2-1.2); Calc. Creatinine Clearance 156 mL/min (70-130); Carbon Dioxide 19 mmol/L (22-29); Chloride 112 mmol/L (98-107); Estimated GFR 117; Globulin 2.5 g/dL (2.4-3.5); Glucose 115 mg/dL (70-105); Lipase 5 U/L (8-78); Potassium 3.7 mmol/L (3.5-5.1); Protein, Total 5.2 g/dL (6.0-8.3); Sodium 136 mmol/L (136-145)
[2023-12-14] MEDS: Morphine 4 MG/ML VIAL SLOW IVP PRN (11:09)
[2023-12-14] MEDS: Dextrose 5 % And 0.9 % NaCl 1,000 ML IV SCH (11:09)
[2023-12-15 04:24] LABS: #Basophils 0.04 10x3/uL (0.0-0.2); %Basophils 0.6 % (0.0-1.0); %Eosinophils 3.5 % (0.0-10.0); %Lymphocytes 36.5 % (21.0-51.0); %Monocytes 6.3 % (0.0-10.0); %Neutrophils 52.8 % (42.0-75.0); Hematocrit 30.5 % (36.0-47.0); Hemoglobin 10.4 g/dL (12.0-16.0); Mean Corpuscular HGB CONC 34.1 g/dL (32.0-36.0); Mean Corpuscular Hemoglobin 28.3 pg (27.0-31.0); Mean Corpuscular Volume 82.9 fL (78.0-98.0); Mean Platelet Volume 12.7 fL (7.4-10.4); Platelet Count 223 10x3/uL (130-400); RBC Distribution Width 13.2 % (11.5-14.5); Red Blood Cell (RBC) Count 3.68 mill/uL (4.20-5.40)
[2023-12-15 04:37] LABS: Anion Gap 12 mmol/L (10-20); BUN (Urea Nitrogen) 8 mg/dL (7.0-18.7); Calc. Creatinine Clearance 151 mL/min (70-130); Calcium 8.3 mg/dL (7.8-10.44); Carbon Dioxide 21 mmol/L (22-29); Chloride 106 mmol/L (98-107); Estimated GFR 116; Glucose 197 mg/dL (70-105); Potassium 3.7 mmol/L (3.5-5.1); Sodium 135 mmol/L (136-145)
[2023-12-15] MEDS ORDERED: Bacteriostatic Normal Saline 30 ML VIAL ONE (11:40)
[2023-12-16 09:17] LABS: Anion Gap 12 mmol/L (10-20); BUN (Urea Nitrogen) 7 mg/dL (7.0-18.7); Calc. Creatinine Clearance 142 mL/min (70-130); Calcium 8.9 mg/dL (7.8-10.44); Carbon Dioxide 26 mmol/L (22-29); Chloride 103 mmol/L (98-107); Estimated GFR 114; Glucose 130 mg/dL (70-105); Potassium 3.6 mmol/L (3.5-5.1); Sodium 137 mmol/L (136-145)
[2023-12-16 13:09] VITALS: BP 154/100; TEMP 97.6
== END 2023-12-16 13:39 | disposition home or self-care (01) | DRG 638 ==
LOC: ERS 19:56 → 2NO 12-12 00:31 → OBSVTOIN 12-12 08:50 → IMCU/EMU 12-12 10:51 → T4-B 12-12 19:16
PROVIDERS: ADMIT Student in an Organized Health Care Education/Training Program; ATTEND Internal Medicine
DX: E11.10 Type 2 diabetes mellitus with ketoacidosis without coma (principal); K86.1 Other chronic pancreatitis; I10 Essential (primary) hypertension; E11.65 Type 2 diabetes mellitus with hyperglycemia; E78.5 Hyperlipidemia, unspecified; R29.90 Unspecified symptoms and signs involving the nervous system; E87.6 Hypokalemia; D64.9 Anemia, unspecified; R47.81 Slurred speech; W19.XXXA Unspecified fall, initial encounter; Z79.4 Long term (current) use of insulin; Z79.899 Other long term (current) drug therapy; Z98.890 Other specified postprocedural states
CPT/HCPCS: 36415; 36416; 70450; 70496; 70498; 70551; 71045; 76705; 78227; 80048; 80053; 80061; 80143; 80179; 80306; 80307; 81001; 82728; 83036; 83540; 83550; 83690; 83735; 84484; 85025; 93005; 93306; 94760; A9537; J1200; J1815; J1885; J2270; J2765; J2930; J3475; J3480; J3490; J7042; J7050; Q9967; S0028